=== PATIENT | female | born 1945 | race Caucasian/White ===

== ENCOUNTER 2018-04-16 16:45 | Outpatient (RCR) | payer MEDICARE, SELFPAY ==
--- NOTE | 2018-02-19 17:36 | PT.OIE ---
Current Diagnoses Stiffness of left wrist, not elsewhere classified (02/19/18) Cervicalgia (02/19/18) Dorsalgia, unspecified (02/19/18) Muscle weakness (generalized) (02/19/18) Other muscle spasm (02/19/18) Radial styloid tenosynovitis [de Quervain] (02/19/18) Provider Visit Care Team Role Provider Type Sol Collado PA-C Attending Provider Advanced Professor Of Political Science Primary Care Provider Specialty: Medical Address: [address] [place] [address], [facility] Email: [email or web address] Physical Therapy Initial Evaluation PT-OP-A Visit Information Start: 02/20/18 13:22 Freq: Status: Active Protocol: Document 02/19/18 17:36 [facility] (Rec: 02/20/18 13:39 [facility] [email or web address]) Out-Patient Physical Therapy Visit Information Visit Information Visit Type Initial Evaluation Visit Start Time 16:53 Visit Stop Time 17:36 Total Visit Minutes 43 Visit Number 1 Number of WOOD POLISHER Visits 0 Evaluation Information Evaluation Date 02/19/18 PT-OP-B Current Condition Start: 02/20/18 13:22 Freq: Status: Active Protocol: Document 02/19/18 17:36 [facility] (Rec: 02/20/18 13:39 [facility] [email or web address]) Current Condition History of Current Condition Onset Date November 2017 Current Complaints L sided neck, shoulder, wrist pain History of Current Condition Pt is a 72 y/o female presenting to physical therapy with a c/o L sided neck and shoulder pain ongoing for many years, as well as L wrist pain, onset November 2017 after seeding her lawn. Pt is L hand dominant. Pt notes that typically, she wakes up in the morning with numbness/ tingling in L hand digits 3 and 4, but goes away after she gets up out of bed. She sleeps on her R side with one pillow, L arm at her side. Pt does have a thumb and wrist spica brace, but states it is too small for her and she ends up taking it off in the middle of the night due to pain from the brace being too tight. No imaging has been performed. Pain in the wrist and thumb region typically are worse with grasping and activities using the hand (i.e . holding coffee cup, driving) . Treatment Goals Patient/Caregiver Goals to get back to her upper body exercise routine with her class, write a check, be able to garden Prior Functional Status Baseline Function- ADL's Independent Baseline Function- Recreation/Hobbies indep. gardening, exercising with UE work with a group of women her Personal Factors Other Personal Factors That May Effect h/o chronic neck pain Therapy/Recovery PT-OP-C Subjective Start: 02/20/18 13:22 Freq: Status: Active Protocol: Document 02/19/18 17:36 [facility] (Rec: 02/20/18 13:39 [facility] [email or web address]) OP-PT Subjective Patient Comments Patient Reported Progress Same Patient Questionnaires Quick Dash- Upper Extremity Quick Dash UE Score 52.27 Quick Dash UE Impairment 40 to 59% Impaired (Score 40- 59) OP-PT Pain Assessment Location Left Lower Lateral Wrist Intensity 5 Scale Used Numeric (1 - 10) PT-OP-F Manual Assessment Start: 02/20/18 13:22 Freq: Status: Active Protocol: Document 02/19/18 17:36 [facility] (Rec: 02/20/18 18:05 RCC [email or web address]) Manual Assessments Soft Tissue Assessment Soft Tissue Mobility Assessment Tenderness to palpation: L extensor pollicis brevis, abductor pollicis longus, wrist extensor common proximal attachement. L upper trapezius and levator scapulae . PT-OP-H Neuro Start: 02/20/18 13:22 Freq: Status: Active Protocol: Document 02/19/18 17:36 [facility] (Rec: 02/20/18 18:05 [facility] [email or web address]) Sensation Evaluation Comments Summary Comments WNL but pt reports occasional tingling digits 3 and 4 on the L hand. Deep Tendon Reflex & Clonus Assessment Deep Tendon Reflex Left Brachioradialis Deep Tendon Reflex 3+ Normal But Brisk Right Brachioradialis Deep Tendon Reflex 2+ Normal Bilateral Tricep Deep Tendon Reflex 2+ Normal Bilateral Bicep Deep Tendon Reflex 2+ Normal PT-OP-K Range of Motion Start: 02/20/18 13:22 Freq: Status: Active Protocol: Document 02/19/18 17:36 [facility] (Rec: 02/20/18 18:05 [facility] [email or web address]) Cervical Spine Range of Motion Cervical Spine Active Degrees Testing Position Sitting Flexion 50 Extension 55 Rotation Left 75 Rotation Right 75 Lateral Flexion Left 34 Lateral Flexion Right 38 ROM Limitations Pain Shoulder Goniometric Range of Motion Shoulder Measured in Degrees Right Active Shoulder ROM WFL Yes Left Active Shoulder ROM WFL Yes Elbow/Forearm Range of Motion Elbow/Forearm Measured in Degrees Right Active Elbow/Forearm ROM WFL Yes Left Active Elbow/Forearm ROM WFL Yes Wrist Goniometric Range of Motion Wrist Measured in Degrees Right Flexion Active (degrees) 80 Extension Active (degrees) 75 Left Wrist ROM WFL No Flexion Active (degrees) 24 Flexion Passive (degrees) 70 Extension Active (degrees) 70 PT-OP-L Special Tests Start: 02/20/18 13:22 Freq: Status: Active Protocol: Document 02/19/18 17:36 [facility] (Rec: 02/20/18 18:05 [facility] [email or web address]) Special Tests Cervical Spine Special Tests Upper Limb Tension Test Test Results positive B Comments ulnar, median, radial Vertebral Artery Test Results negative Spurling's Test Test Results negative B Foraminal Compression Test Results negative B Shoulder Special Tests Huggins Jourdan Impingement Test Results negative B Empty Can Test Results negative B Drop Arm Rotator Cuff Test Results negative B Lift-Off Rotator Cuff Test Results negative B Wrist/Hand Special Tests Kasia's Test Results positive L, negative R Lateral Epicondylitis Extended Test Results negative B Vascular Special Tests Adson Maneuver Test Results negative B PT-OP-M Strength Start: 02/20/18 13:22 Freq: Status: Active Protocol: Document 02/19/18 17:36 [facility] (Rec: 02/20/18 18:05 [facility] [email or web address]) Shoulder Strength Shoulder Manual Muscle Testing Left Flexion 5 Normal Abduction (C5) 5 Normal External Rotation 4+ Good+ Internal Rotation 5 Normal Right Flexion 5 Normal Abduction (C5) 5 Normal External Rotation 5 Normal Internal Rotation 5 Normal Elbow/Forearm Strength Elbow and Forearm Manual Muscle Testing Right Flexion (C6) 5 Normal Extension (C7) 5 Normal Pronation 5 Normal Supination 5 Normal Left Flexion (C6) 5 Normal Extension (C7) 4 Good Pronation 4 Good Supination 4 Good Wrist Strength Wrist Manual Muscle Testing Left Flexion (C7) 3+ Fair+ Extension (C6) 3 Fair Ulnar Deviation 3 Fair Radial Deviation 3 Fair Reason Not Measured Pain Right Flexion (C7) 5 Normal Extension (C6) 5 Normal Ulnar Deviation 5 Normal Radial Deviation 5 Normal Hand Hopper Feeder/Pinch Strength Hand Dominance Hand Dominance Left Hand Strength Right Comments elbow flexed 90 deg, arm @ side: 47 lbs elbow extended 52 lbs Left Comments elbow flexed 90 deg, arm @ side: 44 lbs elbow extended 53 lbs PT-OP-Q Treatments Start: 02/20/18 13:22 Freq: Status: Active Protocol: Document 02/19/18 17:36 [facility] (Rec: 02/20/18 18:05 [facility] [email or web address]) Therapeutic Exercises Sitting Exercises wrist flex/extension AROM Side left Reps/Minutes x10 Comments gravity lessened position- thumb up, neutral forearm finger splaying Side left Reps/Minutes x5 Comments palm down on lap levator and UT stretch Side left Reps/Minutes 1x30 sec each Comments sitting on hand PT-OP-T Assessment and Plan Start: 02/20/18 13:22 Freq: Status: Active Protocol: Document 02/19/18 17:36 [facility] (Rec: 02/20/18 18:05 [facility] [email or web address]) Physical Therapy Assessment Rehab Potential Rehabilitation Potential Good Evaluation Complexity Number of Personal Factors/Comorbidities 1-2 Number of Body Systems Impaired 4 or More Clinical Presentation at Evaluation Stable Impairments Impairments Activity Tolerance Functional Activities Pain ROM Soft Tissue Mobility Strength Goals pain L wrist Impairment pain in L wrist 5/10 Short Term Goal (STG) 3/10 or less rated pain in L wrist STG Duration 6 weeks Veterinary Medical Officer Goal (LTG) pain 1/10 or less in L wrist. LTG Duration 12 weeks Recreational activities Impairment unable to participate in recreational activities Short Term Goal (STG) Pt will return to modified upper body exercises without increased L wrist pain for 30 min. STG Duration 6 weeks Veterinary Medical Officer Goal (LTG) Pt will return to prior level of upper body exercises without increased L wrist pain , no modifications. LTG Duration 12 weeks QuickDASH Impairment QuickDASH score 52.27 Short Term Goal (STG) QuickDASH disability score to 40 or less to demonstrate improvements with upper body function and tasks. STG Duration 6 weeks Correction Goal (LTG) QuickDASH disability score to 30 or less to demonstrate improvements with upper body function and tasks. LTG Duration 12 weeks L wrist ROM Impairment L wrist AROM Short Term Goal (STG) L wrist flexion to 45 degrees AROM. STG Duration 6 weeks Veterinary Medical Officer Goal (LTG) L wrist flexion to 60 degrees AROM or greater. LTG Duration 12 weeks UE weakness Impairment LUE weakness Short Term Goal (STG) Manual muscle testing: elbow extension to 4+/5, wrist at least 4/5 with extension and flexion to improve functional color adviser strength and tolerance. STG Duration 6 weeks Correction Goal (LTG) Manual muscle testing: elbow extension to 5/5, wrist at least 4+/5 with extension and flexion to improve functional color adviser strength and tolerance. LTG Duration 12 weeks Assessment Summary Assessment Pt presents with L sided neck and shoulder pain, which appears to be chronic in nature being affected by posture and digits 3 and 4 likely tingling secondary to head on neck positioning as well as shoulder positioning during sleep. She has upper body neural tension bilaterally, but negative testing for thoracic outlet syndrome. Pt's L wrist and thumb pain presents with signs and symptoms of de Quervain's tenosynovitis. Her thumb/ wrist spica brace does appear to be poor fitting, as she has lines from the entire brace on her wrist upon taking it off, likely causing increased compression and leading to discomfort and poor compliance with brace. She would benefit from larger size at this point given that she is unable to comply with using due to pain the brace is causing. Pt is a good candidate for physical therapy to decrease pain, progress her L hand and wrist strength and ROM to return to her prior level of function and recreational activities. Physical Therapy Plan Frequency and Duration Frequency of Treatment 2x/Week Duration of Treatment 12 weeks Plan of Care Start Date 02/19/18 Plan of Care End Date 05/14/18 Therapeutic Interventions Therapeutic Interventions Aquatic Therapy Home Exercise Program Joint Mobilizations Manual Therapy Neuromuscular Re-education Orthotic/Prosthetic Management Patient/Caregiver Education Self-Care/Home Management Sensory Integration Soft Tissue Mobilization Taping Therapeutic Activities Therapeutic Exercises Modalities Cold Pack/Ice Massage Electric Stimulation Hot Packs Paraffin Bath Ultrasound Next Visit Focus/Plan Next Note Type Treatment Note Next Visit Plan ultrsound and ice for pain, STR for neck, progress L wrist ROM
--- NOTE | 2018-02-21 16:02 | PT.OTN ---
Current Diagnoses Cervicalgia (02/21/18) Dorsalgia, unspecified (02/21/18) Other muscle spasm (02/21/18) Radial styloid tenosynovitis [de Quervain] (02/21/18) Physical Therapy Treatment Note PT-OP-A Visit Information Start: 02/20/18 13:22 Freq: Status: Active Protocol: Document 02/21/18 16:02 [facility] (Rec: 02/21/18 16:22 [facility] [email or web address]) Out-Patient Physical Therapy Visit Information Visit Information Visit Type Treatment Note Visit Start Time 15:20 Visit Stop Time 16:02 Total Visit Minutes 42 Visit Number 2 Number of SAXOPHONE ASSEMBLER Visits 0 Evaluation Information Evaluation Date 02/19/18 PT-OP-B Current Condition Start: 02/20/18 13:22 Freq: Status: Active Protocol: Document 02/19/18 17:36 [facility] (Rec: 02/20/18 13:39 [facility] [email or web address]) Current Condition History of Current Condition Onset Date November 2017 Current Complaints L sided neck, shoulder, wrist pain History of Current Condition Pt is a 72 y/o female presenting to physical therapy with a c/o L sided neck and shoulder pain ongoing for many years, as well as L wrist pain, onset November 2017 after seeding her lawn. Pt is L hand dominant. Pt notes that typically, she wakes up in the morning with numbness/ tingling in L hand digits 3 and 4, but goes away after she gets up out of bed. She sleeps on her R side with one pillow, L arm at her side. Pt does have a thumb and wrist spica brace, but states it is too small for her and she ends up taking it off in the middle of the night due to pain from the brace being too tight. No imaging has been performed. Pain in the wrist and thumb region typically are worse with grasping and activities using the hand (i.e . holding coffee cup, driving) . Treatment Goals Patient/Caregiver Goals to get back to her upper body exercise routine with her class, write a check, be able to garden Prior Functional Status Baseline Function- ADL's Independent Baseline Function- Recreation/Hobbies indep. gardening, exercising with UE work with a group of women her Personal Factors Other Personal Factors That May Effect h/o chronic neck pain Therapy/Recovery PT-OP-C Subjective Start: 02/20/18 13:22 Freq: Status: Active Protocol: Document 02/21/18 16:02 [facility] (Rec: 02/21/18 16:22 [facility] [email or web address]) OP-PT Subjective Patient Comments Patient Comments Pt states that her hand was sore after evaluation. She has been driving a lot today, therefore she does have some increased hand/wrist pain on the L. PT-OP-F Manual Assessment Start: 02/20/18 13:22 Freq: Status: Active Protocol: Document 02/19/18 17:36 [facility] (Rec: 02/20/18 18:05 [facility] [email or web address]) Manual Assessments Soft Tissue Assessment Soft Tissue Mobility Assessment Tenderness to palpation: L extensor pollicis brevis, abductor pollicis longus, wrist extensor common proximal attachement. L upper trapezius and levator scapulae . PT-OP-H Neuro Start: 02/20/18 13:22 Freq: Status: Active Protocol: Document 02/19/18 17:36 [facility] (Rec: 02/20/18 18:05 [facility] [email or web address]) Sensation Evaluation Comments Summary Comments WNL but pt reports occasional tingling digits 3 and 4 on the L hand. Deep Tendon Reflex & Clonus Assessment Deep Tendon Reflex Left Brachioradialis Deep Tendon Reflex 3+ Normal But Brisk Right Brachioradialis Deep Tendon Reflex 2+ Normal Bilateral Tricep Deep Tendon Reflex 2+ Normal Bilateral Bicep Deep Tendon Reflex 2+ Normal PT-OP-K Range of Motion Start: 02/20/18 13:22 Freq: Status: Active Protocol: Document 02/19/18 17:36 [facility] (Rec: 02/20/18 18:05 [facility] [email or web address]) Cervical Spine Range of Motion Cervical Spine Active Degrees Testing Position Sitting Flexion 50 Extension 55 Rotation Left 75 Rotation Right 75 Lateral Flexion Left 34 Lateral Flexion Right 38 ROM Limitations Pain Shoulder Goniometric Range of Motion Shoulder Measured in Degrees Right Active Shoulder ROM WFL Yes Left Active Shoulder ROM WFL Yes Elbow/Forearm Range of Motion Elbow/Forearm Measured in Degrees Right Active Elbow/Forearm ROM WFL Yes Left Active Elbow/Forearm ROM WFL Yes Wrist Goniometric Range of Motion Wrist Measured in Degrees Right Flexion Active (degrees) 80 Extension Active (degrees) 75 Left Wrist ROM WFL No Flexion Active (degrees) 24 Flexion Passive (degrees) 70 Extension Active (degrees) 70 PT-OP-L Special Tests Start: 02/20/18 13:22 Freq: Status: Active Protocol: Document 02/19/18 17:36 [facility] (Rec: 02/20/18 18:05 [facility] [email or web address]) Special Tests Cervical Spine Special Tests Upper Limb Tension Test Test Results positive B Comments ulnar, median, radial Vertebral Artery Test Results negative Spurling's Test Test Results negative B Foraminal Compression Test Results negative B Shoulder Special Tests Huggins Jourdan Impingement Test Results negative B Empty Can Test Results negative B Drop Arm Rotator Cuff Test Results negative B Lift-Off Rotator Cuff Test Results negative B Wrist/Hand Special Tests Kasia's Test Results positive L, negative R Lateral Epicondylitis Extended Test Results negative B Vascular Special Tests Adson Maneuver Test Results negative B PT-OP-M Strength Start: 02/20/18 13:22 Freq: Status: Active Protocol: Document 02/19/18 17:36 [facility] (Rec: 02/20/18 18:05 [facility] [email or web address]) Shoulder Strength Shoulder Manual Muscle Testing Left Flexion 5 Normal Abduction (C5) 5 Normal External Rotation 4+ Good+ Internal Rotation 5 Normal Right Flexion 5 Normal Abduction (C5) 5 Normal External Rotation 5 Normal Internal Rotation 5 Normal Elbow/Forearm Strength Elbow and Forearm Manual Muscle Testing Right Flexion (C6) 5 Normal Extension (C7) 5 Normal Pronation 5 Normal Supination 5 Normal Left Flexion (C6) 5 Normal Extension (C7) 4 Good Pronation 4 Good Supination 4 Good Wrist Strength Wrist Manual Muscle Testing Left Flexion (C7) 3+ Fair+ Extension (C6) 3 Fair Ulnar Deviation 3 Fair Radial Deviation 3 Fair Reason Not Measured Pain Right Flexion (C7) 5 Normal Extension (C6) 5 Normal Ulnar Deviation 5 Normal Radial Deviation 5 Normal Hand Manager Lsw/Pinch Strength Hand Dominance Hand Dominance Left Hand Strength Right Comments elbow flexed 90 deg, arm @ side: 47 lbs elbow extended 52 lbs Left Comments elbow flexed 90 deg, arm @ side: 44 lbs elbow extended 53 lbs PT-OP-Q Treatments Start: 02/20/18 13:22 Freq: Status: Active Protocol: Document 02/21/18 16:02 [facility] (Rec: 02/21/18 16:22 [facility] [email or web address]) Therapeutic Exercises Sitting Exercises theraputty Sitting Exercise Name thumb abduction Side left Resistance yellow theraputty Reps/Minutes 5 reps wrist flex/extension AROM Side left Reps/Minutes x10 Comments gravity lessened position- thumb up, neutral forearm finger splaying Side left Reps/Minutes x5 Comments palm down on lap Manual Therapy Treatment Soft Tissue Mobilization APL, EPB Body Location left Mobilization Type Rolling Strumming Intensity/Depth Moderate Body Position Sitting Other Other Manual Treatments manual PROM- L wrist flexion, extension, thumb abduction and extension PT-OP-R Modalities Start: 02/20/18 13:22 Freq: Status: Active Protocol: Document 02/21/18 16:02 [facility] (Rec: 02/21/18 16:22 [facility] [email or web address]) Hot Pack/Cold Pack Treatment Ice Massage Location L thumb/wrist Patient Position Sitting Treatment Duration (minutes) 4 Patient Tolerance Good Ultrasound Therapy Treatment L thumb/wrist- APL, EPB Treatment Duration (minutes) 8 Patient Position Sitting Coupling Medium Ultrasound Gel Applicator Size (cm2) 2 Frequency Setting (mHz) 3 Mode Setting Pulsed Duty Cycle 50 Intensity Setting (w/cm2) 0.8 PT-OP-T Assessment and Plan Start: 02/20/18 13:22 Freq: Status: Active Protocol: Document 02/21/18 16:02 [facility] (Rec: 02/21/18 16:22 [facility] [email or web address]) Physical Therapy Assessment Assessment Summary Assessment Pt without c/o pain during passive ROM of the wrist and thumb, but does note tension throughout motions. She was able to tolerate light resistance with theraputty into thumb abduction today without c/o pain but her thumb does fatigue quickly. Physical Therapy Plan Frequency and Duration Frequency of Treatment 2x/Week Duration of Treatment 12 weeks Plan of Care Start Date 02/19/18 Plan of Care End Date 05/14/18 Next Visit Focus/Plan Next Note Type Treatment Note Next Visit Plan assess tolerance to treatment, progress with business account manager and ROM as tolerated; add wrist ext and flexion stretch if able. Kinesiotape if needed and modalities for pain.
--- NOTE | 2018-02-26 17:30 | PT.OTN ---
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 Pt is L hand dominant. Pt notes that typically, she wakes up in the morning with numbness/ tingling in L hand digits 3 and 4, but goes away after she gets up out of bed. She sleeps on her R side with one pillow, L arm at her side. Pt does have a thumb and wrist spica brace, but states it is too small for her and she ends up taking it off in the middle of the night due to pain from the brace being too tight. No imaging has been performed. Pain in the wrist and thumb region typically are worse with grasping and activities using the hand (i.e . holding coffee cup, driving) . Treatment Goals Patient/Caregiver Goals to get back to her upper body exercise routine with her class, write a check, be able to garden Prior Functional Status Baseline Function- ADL's Independent Baseline Function- Recreation/Hobbies indep. 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 PT-OP-F Manual Assessment Start: 02/20/18 13:22 Freq: Status: Active Protocol: Document 02/19/18 17:36 [facility] (Rec: 02/20/18 18:05 [facility] [email or web address]) Manual Assessments Soft Tissue Assessment Soft Tissue Mobility Assessment Tenderness to palpation: L extensor pollicis brevis, abductor pollicis longus, wrist extensor common proximal attachement. L upper trapezius and levator scapulae . PT-OP-H Neuro Start: 02/20/18 13:22 Freq: Status: Active Protocol: Document 02/19/18 17:36 [facility] (Rec: 02/20/18 18:05 [facility] [email or web address]) Sensation Evaluation Comments Summary Comments WNL but pt reports occasional tingling digits 3 and 4 on the L hand. Deep Tendon Reflex & Clonus Assessment Deep Tendon Reflex Left Brachioradialis Deep Tendon Reflex 3+ Normal But Brisk Right Brachioradialis Deep Tendon Reflex 2+ Normal Bilateral Tricep Deep Tendon Reflex 2+ Normal Bilateral Bicep Deep Tendon Reflex 2+ Normal PT-OP-K Range of Motion Start: 02/20/18 13:22 Freq: Status: Active Protocol: Document 02/19/18 17:36 [facility] (Rec: 02/20/18 18:05 [facility] [email or web address]) Cervical Spine Range of Motion Cervical Spine Active Degrees Testing Position Sitting Flexion 50 Extension 55 Rotation Left 75 Rotation Right 75 Lateral Flexion Left 34 Lateral Flexion Right 38 ROM Limitations Pain Shoulder Goniometric Range of Motion Shoulder Measured in Degrees Right Active Shoulder ROM WFL Yes Left Active Shoulder ROM WFL Yes Elbow/Forearm Range of Motion Elbow/Forearm Measured in Degrees Right Active Elbow/Forearm ROM WFL Yes Left Active Elbow/Forearm ROM WFL Yes Wrist Goniometric Range of Motion Wrist Measured in Degrees Right Flexion Active (degrees) 80 Extension Active (degrees) 75 Left Wrist ROM WFL No Flexion Active (degrees) 24 Flexion Passive (degrees) 70 Extension Active (degrees) 70 PT-OP-L Special Tests Start: 02/20/18 13:22 Freq: Status: Active Protocol: Document 02/19/18 17:36 [facility] (Rec: 02/20/18 18:05 [facility] [email or web address]) Special Tests Cervical Spine Special Tests Upper Limb Tension Test Test Results positive B Comments ulnar, median, radial Vertebral Artery Test Results negative Spurling's Test Test Results negative B Foraminal Compression Test Results negative B Shoulder Special Tests Huggins Jourdan Impingement Test Results negative B Empty Can Test Results negative B Drop Arm Rotator Cuff Test Results negative B Lift-Off Rotator Cuff Test Results negative B Wrist/Hand Special Tests Kasia's Test Results positive L, negative R Lateral Epicondylitis Extended Test Results negative B Vascular Special Tests Adson Maneuver Test Results negative B PT-OP-M Strength Start: 02/20/18 13:22 Freq: Status: Active Protocol: Document 02/19/18 17:36 [facility] (Rec: 02/20/18 18:05 [facility] [email or web address]) Shoulder Strength Shoulder Manual Muscle Testing Left Flexion 5 Normal Abduction (C5) 5 Normal External Rotation 4+ Good+ Internal Rotation 5 Normal Right Flexion 5 Normal Abduction (C5) 5 Normal External Rotation 5 Normal Internal Rotation 5 Normal Elbow/Forearm Strength Elbow and Forearm Manual Muscle Testing Right Flexion (C6) 5 Normal Extension (C7) 5 Normal Pronation 5 Normal Supination 5 Normal Left Flexion (C6) 5 Normal Extension (C7) 4 Good Pronation 4 Good Supination 4 Good Wrist Strength Wrist Manual Muscle Testing Left Flexion (C7) 3+ Fair+ Extension (C6) 3 Fair Ulnar Deviation 3 Fair Radial Deviation 3 Fair Reason Not Measured Pain Right Flexion (C7) 5 Normal Extension (C6) 5 Normal Ulnar Deviation 5 Normal Radial Deviation 5 Normal 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 Hand Dominance Hand Dominance Left Hand Strength Right Comments elbow flexed 90 deg, arm @ side: 47 lbs elbow extended 52 lbs Left Comments elbow flexed 90 deg, arm @ side: 44 lbs elbow extended 53 lbs PT-OP-Q Treatments Start: 02/20/18 13:22 Freq: Status: Active Protocol: Document 02/26/18 17:30 [facility] (Rec: 02/26/18 17:44 [facility] [email or web address]) Manual Therapy Treatment Soft Tissue Mobilization L upper trapezius, levator Mobilization Type Myofascial Release Rolling Strumming Intensity/Depth Moderate Body Position Supine APL, EPB Body Location left Mobilization Type Rolling Strumming Intensity/Depth Moderate Body Position Sitting Joint Mobilizations L Radiocarpal Direction PA, AP with traction Grade III Body Position Sitting Reps/Duration 5 min each Taping 1 Body Location L wrist Type of Tape Kinesio Tape Comments Y strip palmar wrist extending one part of Y strip over snuff box and other part of Y strip over volar forearm Manual Techniques L wrist and thumb ROM Type thumb abduction and extension, wrist flexion and extension, ulnar deviation Body Position Sitting Reps/Duration 10 each PT-OP-R Modalities Start: 02/20/18 13:22 Freq: Status: Active Protocol: Document 02/26/18 17:30 [facility] (Rec: 02/26/18 17:44 [facility] [email or web address]) Ultrasound Therapy Treatment L thumb/wrist- APL, EPB Treatment Duration (minutes) 8 Patient Position Sitting Coupling Medium Ultrasound Gel Applicator Size (cm2) 2 Frequency Setting (mHz) 3 Mode Setting Pulsed Duty Cycle 50 Intensity Setting (w/cm2) 0.8 PT-OP-T Assessment and Plan Start: 02/20/18 13:22 Freq: Status: Active Protocol: Document 02/26/18 17:30 [facility] (Rec: 02/26/18 17:44 [facility] [email or web address]) Physical Therapy Assessment Assessment Summary Assessment Pt with improved wrist flexion and extension today, and less pain with thumb motion in gravity lessened position. Pt with moderate tension in upper trapezius and levator today. Her difficulty with reaching for seatbelt likely contributed by neck/shoulder as well as function of hand and wrist. 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
--- NOTE | 2018-02-28 15:58 | PT.OTN ---
Current Diagnoses Cervicalgia (02/28/18) Dorsalgia, unspecified (02/28/18) Other muscle spasm (02/28/18) Radial styloid tenosynovitis [de Quervain] (02/28/18) Physical Therapy Treatment Note PT-OP-A Visit Information Start: 02/20/18 13:22 Freq: Status: Active Protocol: Document 02/28/18 15:58 [facility] (Rec: 03/01/18 14:52 [facility] [email or web address]) Out-Patient Physical Therapy Visit Information Visit Information Visit Type Treatment Note Visit Start Time 15:17 Visit Stop Time 15:58 Total Visit Minutes 41 Visit Number 4 Number of DECKHAND MAINTENANCE Visits 0 Evaluation Information Evaluation Date 02/19/18 PT-OP-B Current Condition Start: 02/20/18 13:22 Freq: Status: Active Protocol: Document 02/19/18 17:36 [facility] (Rec: 02/20/18 13:39 [facility] [email or web address]) Current Condition History of Current Condition Onset Date November 2017 Current Complaints L sided neck, shoulder, wrist pain History of Current Condition Pt is a 72 y/o female presenting to physical therapy with a c/o L sided neck and shoulder pain ongoing for many years, as well as L wrist pain, onset November 2017 after seeding her lawn. Pt is L hand dominant. Pt notes that typically, she wakes up in the morning with numbness/ tingling in L hand digits 3 and 4, but goes away after she gets up out of bed. She sleeps on her R side with one pillow, L arm at her side. Pt does have a thumb and wrist spica brace, but states it is too small for her and she ends up taking it off in the middle of the night due to pain from the brace being too tight. No imaging has been performed. Pain in the wrist and thumb region typically are worse with grasping and activities using the hand (i.e . holding coffee cup, driving) . Treatment Goals Patient/Caregiver Goals to get back to her upper body exercise routine with her class, write a check, be able to garden Prior Functional Status Baseline Function- ADL's Independent Baseline Function- Recreation/Hobbies indep. gardening, exercising with UE work with a group of women her Personal Factors Other Personal Factors That May Effect h/o chronic neck pain Therapy/Recovery PT-OP-C Subjective Start: 02/20/18 13:22 Freq: Status: Active Protocol: Document 02/28/18 15:58 [facility] (Rec: 03/01/18 14:52 [facility] [email or web address]) OP-PT Subjective Patient Comments Patient Comments Pt states the Kinesiotape helped a lot but did have increased discomfort after taking the tape off earlier today. She is performing her HEP. PT-OP-F Manual Assessment Start: 02/20/18 13:22 Freq: Status: Active Protocol: Document 02/19/18 17:36 [facility] (Rec: 02/20/18 18:05 [facility] [email or web address]) Manual Assessments Soft Tissue Assessment Soft Tissue Mobility Assessment Tenderness to palpation: L extensor pollicis brevis, abductor pollicis longus, wrist extensor common proximal attachement. L upper trapezius and levator scapulae . PT-OP-H Neuro Start: 02/20/18 13:22 Freq: Status: Active Protocol: Document 02/19/18 17:36 [facility] (Rec: 02/20/18 18:05 [facility] [email or web address]) Sensation Evaluation Comments Summary Comments WNL but pt reports occasional tingling digits 3 and 4 on the L hand. Deep Tendon Reflex & Clonus Assessment Deep Tendon Reflex Left Brachioradialis Deep Tendon Reflex 3+ Normal But Brisk Right Brachioradialis Deep Tendon Reflex 2+ Normal Bilateral Tricep Deep Tendon Reflex 2+ Normal Bilateral Bicep Deep Tendon Reflex 2+ Normal PT-OP-K Range of Motion Start: 02/20/18 13:22 Freq: Status: Active Protocol: Document 02/19/18 17:36 [facility] (Rec: 02/20/18 18:05 [facility] [email or web address]) Cervical Spine Range of Motion Cervical Spine Active Degrees Testing Position Sitting Flexion 50 Extension 55 Rotation Left 75 Rotation Right 75 Lateral Flexion Left 34 Lateral Flexion Right 38 ROM Limitations Pain Shoulder Goniometric Range of Motion Shoulder Measured in Degrees Right Active Shoulder ROM WFL Yes Left Active Shoulder ROM WFL Yes Elbow/Forearm Range of Motion Elbow/Forearm Measured in Degrees Right Active Elbow/Forearm ROM WFL Yes Left Active Elbow/Forearm ROM WFL Yes Wrist Goniometric Range of Motion Wrist Measured in Degrees Right Flexion Active (degrees) 80 Extension Active (degrees) 75 Left Wrist ROM WFL No Flexion Active (degrees) 24 Flexion Passive (degrees) 70 Extension Active (degrees) 70 PT-OP-L Special Tests Start: 02/20/18 13:22 Freq: Status: Active Protocol: Document 02/19/18 17:36 [facility] (Rec: 02/20/18 18:05 [facility] [email or web address]) Special Tests Cervical Spine Special Tests Upper Limb Tension Test Test Results positive B Comments ulnar, median, radial Vertebral Artery Test Results negative Spurling's Test Test Results negative B Foraminal Compression Test Results negative B Shoulder Special Tests Huggins Jourdan Impingement Test Results negative B Empty Can Test Results negative B Drop Arm Rotator Cuff Test Results negative B Lift-Off Rotator Cuff Test Results negative B Wrist/Hand Special Tests Kasia's Test Results positive L, negative R Lateral Epicondylitis Extended Test Results negative B Vascular Special Tests Adson Maneuver Test Results negative B PT-OP-M Strength Start: 02/20/18 13:22 Freq: Status: Active Protocol: Document 02/19/18 17:36 [facility] (Rec: 02/20/18 18:05 [facility] [email or web address]) Shoulder Strength Shoulder Manual Muscle Testing Left Flexion 5 Normal Abduction (C5) 5 Normal External Rotation 4+ Good+ Internal Rotation 5 Normal Right Flexion 5 Normal Abduction (C5) 5 Normal External Rotation 5 Normal Internal Rotation 5 Normal Elbow/Forearm Strength Elbow and Forearm Manual Muscle Testing Right Flexion (C6) 5 Normal Extension (C7) 5 Normal Pronation 5 Normal Supination 5 Normal Left Flexion (C6) 5 Normal Extension (C7) 4 Good Pronation 4 Good Supination 4 Good Wrist Strength Wrist Manual Muscle Testing Left Flexion (C7) 3+ Fair+ Extension (C6) 3 Fair Ulnar Deviation 3 Fair Radial Deviation 3 Fair Reason Not Measured Pain Right Flexion (C7) 5 Normal Extension (C6) 5 Normal Ulnar Deviation 5 Normal Radial Deviation 5 Normal 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 Dominance Hand Dominance Left Hand Strength Right Comments elbow flexed 90 deg, arm @ side: 47 lbs elbow extended 52 lbs Left Comments elbow flexed 90 deg, arm @ side: 44 lbs elbow extended 53 lbs PT-OP-Q Treatments Start: 02/20/18 13:22 Freq: Status: Active Protocol: Document 02/28/18 15:58 [facility] (Rec: 03/01/18 14:52 [facility] [email or web address]) Manual Therapy Treatment Soft Tissue Mobilization L upper trapezius, levator Mobilization Type Myofascial Release Rolling Strumming Intensity/Depth Moderate Body Position Supine APL, EPB Body Location left Mobilization Type Rolling Strumming Intensity/Depth Moderate Body Position Sitting Joint Mobilizations L Radiocarpal Direction PA, AP with traction Grade III Body Position Sitting Reps/Duration 5 min each Taping 1 Body Location L wrist Type of Tape Kinesio Tape Comments Y strip palmar wrist extending one part of Y strip over snuff box and other part of Y strip over volar forearm Manual Techniques L wrist and thumb ROM Type thumb abduction and extension, wrist flexion and extension, ulnar deviation Body Position Sitting Reps/Duration 10 each PT-OP-R Modalities Start: 02/20/18 13:22 Freq: Status: Active Protocol: Document 02/28/18 15:58 [facility] (Rec: 03/01/18 14:52 [facility] [email or web address]) Ultrasound Therapy Treatment L thumb/wrist- APL, EPB Treatment Duration (minutes) 8 Patient Position Sitting Coupling Medium Ultrasound Gel Applicator Size (cm2) 2 Frequency Setting (mHz) 3 Mode Setting Pulsed Duty Cycle 50 Intensity Setting (w/cm2) 0.8 PT-OP-T Assessment and Plan Start: 02/20/18 13:22 Freq: Status: Active Protocol: Document 02/28/18 15:58 [facility] (Rec: 03/01/18 14:52 [facility] [email or web address]) Physical Therapy Assessment Assessment Summary Assessment Pt's passive and active wrist ROM is improving slowly, with less discomfort further into range. Encouraged pt to continue to use L hand as much as possible with light functional activities while wearing kinesiotape to foster improved strength and function . Pt still not at her baseline function and limited with ROM and pain. 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
--- NOTE | 2018-03-05 17:30 | PT.OTN ---
Current Diagnoses Cervicalgia (03/05/18) Dorsalgia, unspecified (03/05/18) Other muscle spasm (03/05/18) Radial styloid tenosynovitis [de Quervain] (03/05/18) Physical Therapy Treatment Note PT-OP-A Visit Information Start: 02/20/18 13:22 Freq: Status: Active Protocol: Document 03/05/18 17:30 [facility] (Rec: 03/05/18 17:47 [facility] [email or web address]) Out-Patient Physical Therapy Visit Information Visit Information Visit Type Treatment Note Visit Start Time 16:50 Visit Stop Time 17:30 Total Visit Minutes 40 Visit Number 5 Number of OCCUPATIONAL THER[employer]Y CO DIRECTOR Visits 0 Evaluation Information Evaluation Date 02/19/18 PT-OP-B Current Condition Start: 02/20/18 13:22 Freq: Status: Active Protocol: Document 02/19/18 17:36 [facility] (Rec: 02/20/18 13:39 [facility] [email or web address]) Current Condition History of Current Condition Onset Date November 2017 Current Complaints L sided neck, shoulder, wrist pain History of Current Condition Pt is a 72 y/o female presenting to physical therapy with a c/o L sided neck and shoulder pain ongoing for many years, as well as L wrist pain, onset November 2017 after seeding her lawn. Pt is L hand dominant. Pt notes that typically, she wakes up in the morning with numbness/ tingling in L hand digits 3 and 4, but goes away after she gets up out of bed. She sleeps on her R side with one pillow, L arm at her side. Pt does have a thumb and wrist spica brace, but states it is too small for her and she ends up taking it off in the middle of the night due to pain from the brace being too tight. No imaging has been performed. Pain in the wrist and thumb region typically are worse with grasping and activities using the hand (i.e . holding coffee cup, driving) . Treatment Goals Patient/Caregiver Goals to get back to her upper body exercise routine with her class, write a check, be able to garden Prior Functional Status Baseline Function- ADL's Independent Baseline Function- Recreation/Hobbies indep. gardening, exercising with UE work with a group of women her Personal Factors Other Personal Factors That May Effect h/o chronic neck pain Therapy/Recovery PT-OP-C Subjective Start: 02/20/18 13:22 Freq: Status: Active Protocol: Document 03/05/18 17:30 [facility] (Rec: 03/05/18 17:47 [facility] [email or web address]) OP-PT Subjective Patient Comments Patient Comments Pt is performing HEP. She has been able to modify her exercise with her workout group to use ankle weights around the wrist vs. holding dumbells which she could not tolerate. PT-OP-F Manual Assessment Start: 02/20/18 13:22 Freq: Status: Active Protocol: Document 02/19/18 17:36 [facility] (Rec: 02/20/18 18:05 [facility] [email or web address]) Manual Assessments Soft Tissue Assessment Soft Tissue Mobility Assessment Tenderness to palpation: L extensor pollicis brevis, abductor pollicis longus, wrist extensor common proximal attachement. L upper trapezius and levator scapulae . PT-OP-H Neuro Start: 02/20/18 13:22 Freq: Status: Active Protocol: Document 02/19/18 17:36 [facility] (Rec: 02/20/18 18:05 [facility] [email or web address]) Sensation Evaluation Comments Summary Comments WNL but pt reports occasional tingling digits 3 and 4 on the L hand. Deep Tendon Reflex & Clonus Assessment Deep Tendon Reflex Left Brachioradialis Deep Tendon Reflex 3+ Normal But Brisk Right Brachioradialis Deep Tendon Reflex 2+ Normal Bilateral Tricep Deep Tendon Reflex 2+ Normal Bilateral Bicep Deep Tendon Reflex 2+ Normal PT-OP-K Range of Motion Start: 02/20/18 13:22 Freq: Status: Active Protocol: Document 02/19/18 17:36 [facility] (Rec: 02/20/18 18:05 [facility] [email or web address]) Cervical Spine Range of Motion Cervical Spine Active Degrees Testing Position Sitting Flexion 50 Extension 55 Rotation Left 75 Rotation Right 75 Lateral Flexion Left 34 Lateral Flexion Right 38 ROM Limitations Pain Shoulder Goniometric Range of Motion Shoulder Measured in Degrees Right Active Shoulder ROM WFL Yes Left Active Shoulder ROM WFL Yes Elbow/Forearm Range of Motion Elbow/Forearm Measured in Degrees Right Active Elbow/Forearm ROM WFL Yes Left Active Elbow/Forearm ROM WFL Yes Wrist Goniometric Range of Motion Wrist Measured in Degrees Right Flexion Active (degrees) 80 Extension Active (degrees) 75 Left Wrist ROM WFL No Flexion Active (degrees) 24 Flexion Passive (degrees) 70 Extension Active (degrees) 70 PT-OP-L Special Tests Start: 02/20/18 13:22 Freq: Status: Active Protocol: Document 02/19/18 17:36 [facility] (Rec: 02/20/18 18:05 [facility] [email or web address]) Special Tests Cervical Spine Special Tests Upper Limb Tension Test Test Results positive B Comments ulnar, median, radial Vertebral Artery Test Results negative Spurling's Test Test Results negative B Foraminal Compression Test Results negative B Shoulder Special Tests Huggins Jourdan Impingement Test Results negative B Empty Can Test Results negative B Drop Arm Rotator Cuff Test Results negative B Lift-Off Rotator Cuff Test Results negative B Wrist/Hand Special Tests Kasia's Test Results positive L, negative R Lateral Epicondylitis Extended Test Results negative B Vascular Special Tests Adson Maneuver Test Results negative B PT-OP-M Strength Start: 02/20/18 13:22 Freq: Status: Active Protocol: Document 02/19/18 17:36 [facility] (Rec: 02/20/18 18:05 [facility] [email or web address]) Shoulder Strength Shoulder Manual Muscle Testing Left Flexion 5 Normal Abduction (C5) 5 Normal External Rotation 4+ Good+ Internal Rotation 5 Normal Right Flexion 5 Normal Abduction (C5) 5 Normal External Rotation 5 Normal Internal Rotation 5 Normal Elbow/Forearm Strength Elbow and Forearm Manual Muscle Testing Right Flexion (C6) 5 Normal Extension (C7) 5 Normal Pronation 5 Normal Supination 5 Normal Left Flexion (C6) 5 Normal Extension (C7) 4 Good Pronation 4 Good Supination 4 Good Wrist Strength Wrist Manual Muscle Testing Left Flexion (C7) 3+ Fair+ Extension (C6) 3 Fair Ulnar Deviation 3 Fair Radial Deviation 3 Fair Reason Not Measured Pain Right Flexion (C7) 5 Normal Extension (C6) 5 Normal Ulnar Deviation 5 Normal Radial Deviation 5 Normal Hand Distribution Technician/Pinch Strength Hand Dominance Hand Dominance Left Hand Strength Right Comments elbow flexed 90 deg, arm @ side: 47 lbs elbow extended 52 lbs Left Comments elbow flexed 90 deg, arm @ side: 44 lbs elbow extended 53 lbs PT-OP-Q Treatments Start: 02/20/18 13:22 Freq: Status: Active Protocol: Document 03/05/18 17:30 [facility] (Rec: 03/05/18 17:47 [facility] [email or web address]) Therapeutic Exercises Sitting Exercises wrist extension stretch Side left Reps/Minutes 3x15 sec Comments thumb in palm position supination/pronation Sitting Exercise Name T-flexbar supination/pronation Side bilateral Resistance red flexbar Reps/Minutes x10 wrist flex/extension AROM Side left Reps/Minutes x10 Comments vs gravity- limited range but less pain Manual Therapy Treatment Soft Tissue Mobilization L upper trapezius, levator Mobilization Type Myofascial Release Rolling Strumming Intensity/Depth Moderate Body Position Supine APL, EPB Body Location left Mobilization Type Rolling Strumming Intensity/Depth Moderate Body Position Sitting Taping 1 Body Location L wrist Type of Tape Kinesio Tape Comments Y strip palmar wrist extending one part of Y strip over snuff box and other part of Y strip over volar forearm Manual Techniques L wrist and thumb ROM Type thumb abduction and extension, wrist flexion and extension, ulnar deviation Body Position Sitting Reps/Duration 10 each PT-OP-R Modalities Start: 02/20/18 13:22 Freq: Status: Active Protocol: Document 03/05/18 17:30 [facility] (Rec: 03/05/18 17:47 [facility] [email or web address]) Ultrasound Therapy Treatment L thumb/wrist- APL, EPB Treatment Duration (minutes) 8 Patient Position Sitting Coupling Medium Ultrasound Gel Applicator Size (cm2) 2 Frequency Setting (mHz) 3 Mode Setting Pulsed Duty Cycle 50 Intensity Setting (w/cm2) 0.8 PT-OP-T Assessment and Plan Start: 02/20/18 13:22 Freq: Status: Active Protocol: Document 03/05/18 17:30 [facility] (Rec: 03/05/18 17:47 [facility] [email or web address]) Physical Therapy Assessment Assessment Summary Assessment Pt tolerated L wrist ROM vs. gravity without pain but still has stiffness in the wrist joint. Pt still requires modification of activities at home and during stretching due to pain in the APL and EPB. Physical Therapy Plan Frequency and Duration Frequency of Treatment 2x/Week Duration of Treatment 12 weeks Plan of Care Start Date 02/19/18 Plan of Care End Date 05/14/18 Next Visit Focus/Plan Next Note Type Treatment Note Next Visit Plan nerve glides if able to tolerate
--- NOTE | 2018-03-07 16:00 | PT.OTN ---
Current Diagnoses Cervicalgia (03/07/18) Dorsalgia, unspecified (03/07/18) Other muscle spasm (03/07/18) Radial styloid tenosynovitis [de Quervain] (03/07/18) Physical Therapy Treatment Note PT-OP-A Visit Information Start: 02/20/18 13:22 Freq: Status: Active Protocol: Document 03/07/18 16:00 [facility] (Rec: 03/08/18 13:22 [facility] [email or web address]) Out-Patient Physical Therapy Visit Information Visit Information Visit Type Treatment Note Visit Start Time 15:18 Visit Stop Time 16:00 Total Visit Minutes 42 Visit Number 6 Number of [employer] ANALYST Visits 0 Evaluation Information Evaluation Date 02/19/18 PT-OP-B Current Condition Start: 02/20/18 13:22 Freq: Status: Active Protocol: Document 02/19/18 17:36 [facility] (Rec: 02/20/18 13:39 [facility] [email or web address]) Current Condition History of Current Condition Onset Date November 2017 Current Complaints L sided neck, shoulder, wrist pain History of Current Condition Pt is a 72 y/o female presenting to physical therapy with a c/o L sided neck and shoulder pain ongoing for many years, as well as L wrist pain, onset November 2017 after seeding her lawn. Pt is L hand dominant. Pt notes that typically, she wakes up in the morning with numbness/ tingling in L hand digits 3 and 4, but goes away after she gets up out of bed. She sleeps on her R side with one pillow, L arm at her side. Pt does have a thumb and wrist spica brace, but states it is too small for her and she ends up taking it off in the middle of the night due to pain from the brace being too tight. No imaging has been performed. Pain in the wrist and thumb region typically are worse with grasping and activities using the hand (i.e . holding coffee cup, driving) . Treatment Goals Patient/Caregiver Goals to get back to her upper body exercise routine with her class, write a check, be able to garden Prior Functional Status Baseline Function- ADL's Independent Baseline Function- Recreation/Hobbies indep. gardening, exercising with UE work with a group of women her Personal Factors Other Personal Factors That May Effect h/o chronic neck pain Therapy/Recovery PT-OP-C Subjective Start: 02/20/18 13:22 Freq: Status: Active Protocol: Document 03/07/18 16:00 [facility] (Rec: 03/08/18 13:22 [facility] [email or web address]) OP-PT Subjective Patient Comments Patient Comments Pt states the tape seems to help during activities, and less pain when waking up in the morning. PT-OP-F Manual Assessment Start: 02/20/18 13:22 Freq: Status: Active Protocol: Document 02/19/18 17:36 [facility] (Rec: 02/20/18 18:05 [facility] [email or web address]) Manual Assessments Soft Tissue Assessment Soft Tissue Mobility Assessment Tenderness to palpation: L extensor pollicis brevis, abductor pollicis longus, wrist extensor common proximal attachement. L upper trapezius and levator scapulae . PT-OP-H Neuro Start: 02/20/18 13:22 Freq: Status: Active Protocol: Document 02/19/18 17:36 [facility] (Rec: 02/20/18 18:05 [facility] [email or web address]) Sensation Evaluation Comments Summary Comments WNL but pt reports occasional tingling digits 3 and 4 on the L hand. Deep Tendon Reflex & Clonus Assessment Deep Tendon Reflex Left Brachioradialis Deep Tendon Reflex 3+ Normal But Brisk Right Brachioradialis Deep Tendon Reflex 2+ Normal Bilateral Tricep Deep Tendon Reflex 2+ Normal Bilateral Bicep Deep Tendon Reflex 2+ Normal PT-OP-K Range of Motion Start: 02/20/18 13:22 Freq: Status: Active Protocol: Document 03/07/18 16:00 [facility] (Rec: 03/08/18 13:22 [facility] [email or web address]) Wrist Goniometric Range of Motion Wrist Measured in Degrees Left Wrist ROM WFL No Flexion Active (degrees) 30 Flexion Passive (degrees) 70 Extension Active (degrees) 70 PT-OP-L Special Tests Start: 02/20/18 13:22 Freq: Status: Active Protocol: Document 02/19/18 17:36 [facility] (Rec: 02/20/18 18:05 [facility] [email or web address]) Special Tests Cervical Spine Special Tests Upper Limb Tension Test Test Results positive B Comments ulnar, median, radial Vertebral Artery Test Results negative Spurling's Test Test Results negative B Foraminal Compression Test Results negative B Shoulder Special Tests Huggins Jourdan Impingement Test Results negative B Empty Can Test Results negative B Drop Arm Rotator Cuff Test Results negative B Lift-Off Rotator Cuff Test Results negative B Wrist/Hand Special Tests Kasia's Test Results positive L, negative R Lateral Epicondylitis Extended Test Results negative B Vascular Special Tests Adson Maneuver Test Results negative B PT-OP-M Strength Start: 02/20/18 13:22 Freq: Status: Active Protocol: Document 02/19/18 17:36 [facility] (Rec: 02/20/18 18:05 [facility] [email or web address]) Shoulder Strength Shoulder Manual Muscle Testing Left Flexion 5 Normal Abduction (C5) 5 Normal External Rotation 4+ Good+ Internal Rotation 5 Normal Right Flexion 5 Normal Abduction (C5) 5 Normal External Rotation 5 Normal Internal Rotation 5 Normal Elbow/Forearm Strength Elbow and Forearm Manual Muscle Testing Right Flexion (C6) 5 Normal Extension (C7) 5 Normal Pronation 5 Normal Supination 5 Normal Left Flexion (C6) 5 Normal Extension (C7) 4 Good Pronation 4 Good Supination 4 Good Wrist Strength Wrist Manual Muscle Testing Left Flexion (C7) 3+ Fair+ Extension (C6) 3 Fair Ulnar Deviation 3 Fair Radial Deviation 3 Fair Reason Not Measured Pain Right Flexion (C7) 5 Normal Extension (C6) 5 Normal Ulnar Deviation 5 Normal Radial Deviation 5 Normal Hand Law Office Receptionist/Pinch Strength Hand Dominance Hand Dominance Left Hand Strength Right Comments elbow flexed 90 deg, arm @ side: 47 lbs elbow extended 52 lbs Left Comments elbow flexed 90 deg, arm @ side: 44 lbs elbow extended 53 lbs PT-OP-Q Treatments Start: 02/20/18 13:22 Freq: Status: Active Protocol: Document 03/07/18 16:00 [facility] (Rec: 03/08/18 13:22 [facility] [email or web address]) Therapeutic Exercises Sitting Exercises wrist extension stretch Side left Reps/Minutes 3x15 sec Comments thumb in palm position wrist flex/extension AROM Side left Reps/Minutes x10 Comments vs gravity- limited range but less pain Manual Therapy Treatment Soft Tissue Mobilization L upper trapezius, levator Mobilization Type Myofascial Release Strumming Sustained Pressure Trigger Point Release Intensity/Depth Moderate Body Position Supine APL, EPB Body Location left Mobilization Type Rolling Strumming Intensity/Depth Moderate Body Position Sitting Joint Mobilizations L Radiocarpal Direction PA, AP with traction Grade III Body Position Sitting Reps/Duration 5 min each Manual Techniques L wrist and thumb ROM Type thumb abduction and extension, wrist flexion and extension, ulnar deviation Body Position Sitting Reps/Duration 10 each PT-OP-R Modalities Start: 02/20/18 13:22 Freq: Status: Active Protocol: Document 03/07/18 16:00 [facility] (Rec: 03/08/18 13:22 [facility] [email or web address]) Ultrasound Therapy Treatment L thumb/wrist- APL, EPB Treatment Duration (minutes) 8 Patient Position Sitting Coupling Medium Ultrasound Gel Applicator Size (cm2) 2 Frequency Setting (mHz) 3 Mode Setting Pulsed Duty Cycle 50 Intensity Setting (w/cm2) 0.8 PT-OP-T Assessment and Plan Start: 02/20/18 13:22 Freq: Status: Active Protocol: Document 03/07/18 16:00 [facility] (Rec: 03/08/18 13:22 [facility] [email or web address]) Physical Therapy Assessment Assessment Summary Assessment L wrist flexion still limited but improved slightly and no c /o pain. Pt with stiffness in the radiocarpal joint, ROM improves with gentle traction. Pt is still below her overall functional baseline with L dominant hand/wrist. Physical Therapy Plan Frequency and Duration Frequency of Treatment 2x/Week Duration of Treatment 12 weeks Plan of Care Start Date 02/19/18 Plan of Care End Date 05/14/18 Next Visit Focus/Plan Next Note Type Treatment Note Next Visit Plan nerve glides if able to tolerate, wrist isometrics.
--- NOTE | 2018-03-12 17:33 | PT.OTN ---
Current Diagnoses Cervicalgia (03/12/18) Dorsalgia, unspecified (03/12/18) Other muscle spasm (03/12/18) Radial styloid tenosynovitis [de Quervain] (03/12/18) Physical Therapy Treatment Note PT-OP-A Visit Information Start: 02/20/18 13:22 Freq: Status: Active Protocol: Document 03/12/18 17:33 [facility] (Rec: 03/13/18 09:40 [facility] [email or web address]) Out-Patient Physical Therapy Visit Information Visit Information Visit Type Treatment Note Visit Start Time 16:46 Visit Stop Time 17:33 Total Visit Minutes 47 Visit Number 7 Number of HEEL GUMMER Visits 0 Evaluation Information Evaluation Date 02/19/18 PT-OP-B Current Condition Start: 02/20/18 13:22 Freq: Status: Active Protocol: Document 02/19/18 17:36 [facility] (Rec: 02/20/18 13:39 [facility] [email or web address]) Current Condition History of Current Condition Onset Date November 2017 Current Complaints L sided neck, shoulder, wrist pain History of Current Condition Pt is a 72 y/o female presenting to physical therapy with a c/o L sided neck and shoulder pain ongoing for many years, as well as L wrist pain, onset November 2017 after seeding her lawn. Pt is L hand dominant. Pt notes that typically, she wakes up in the morning with numbness/ tingling in L hand digits 3 and 4, but goes away after she gets up out of bed. She sleeps on her R side with one pillow, L arm at her side. Pt does have a thumb and wrist spica brace, but states it is too small for her and she ends up taking it off in the middle of the night due to pain from the brace being too tight. No imaging has been performed. Pain in the wrist and thumb region typically are worse with grasping and activities using the hand (i.e . holding coffee cup, driving) . Treatment Goals Patient/Caregiver Goals to get back to her upper body exercise routine with her class, write a check, be able to garden Prior Functional Status Baseline Function- ADL's Independent Baseline Function- Recreation/Hobbies indep. 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 PT-OP-F Manual Assessment Start: 02/20/18 13:22 Freq: Status: Active Protocol: Document 02/19/18 17:36 [facility] (Rec: 02/20/18 18:05 [facility] [email or web address]) Manual Assessments Soft Tissue Assessment Soft Tissue Mobility Assessment Tenderness to palpation: L extensor pollicis brevis, abductor pollicis longus, wrist extensor common proximal attachement. L upper trapezius and levator scapulae . PT-OP-H Neuro Start: 02/20/18 13:22 Freq: Status: Active Protocol: Document 02/19/18 17:36 [facility] (Rec: 02/20/18 18:05 [facility] [email or web address]) Sensation Evaluation Comments Summary Comments WNL but pt reports occasional tingling digits 3 and 4 on the L hand. Deep Tendon Reflex & Clonus Assessment Deep Tendon Reflex Left Brachioradialis Deep Tendon Reflex 3+ Normal But Brisk Right Brachioradialis Deep Tendon Reflex 2+ Normal Bilateral Tricep Deep Tendon Reflex 2+ Normal Bilateral Bicep Deep Tendon Reflex 2+ Normal PT-OP-K Range of Motion Start: 02/20/18 13:22 Freq: Status: Active Protocol: Document 03/07/18 16:00 [facility] (Rec: 03/08/18 13:22 [facility] [email or web address]) Wrist Goniometric Range of Motion Wrist Measured in Degrees Left Wrist ROM WFL No Flexion Active (degrees) 30 Flexion Passive (degrees) 70 Extension Active (degrees) 70 PT-OP-L Special Tests Start: 02/20/18 13:22 Freq: Status: Active Protocol: Document 02/19/18 17:36 [facility] (Rec: 02/20/18 18:05 [facility] [email or web address]) Special Tests Cervical Spine Special Tests Upper Limb Tension Test Test Results positive B Comments ulnar, median, radial Vertebral Artery Test Results negative Spurling's Test Test Results negative B Foraminal Compression Test Results negative B Shoulder Special Tests Huggins Jourdan Impingement Test Results negative B Empty Can Test Results negative B Drop Arm Rotator Cuff Test Results negative B Lift-Off Rotator Cuff Test Results negative B Wrist/Hand Special Tests Kasia's Test Results positive L, negative R Lateral Epicondylitis Extended Test Results negative B Vascular Special Tests Adson Maneuver Test Results negative B PT-OP-M Strength Start: 02/20/18 13:22 Freq: Status: Active Protocol: Document 02/19/18 17:36 [facility] (Rec: 02/20/18 18:05 [facility] [email or web address]) Shoulder Strength Shoulder Manual Muscle Testing Left Flexion 5 Normal Abduction (C5) 5 Normal External Rotation 4+ Good+ Internal Rotation 5 Normal Right Flexion 5 Normal Abduction (C5) 5 Normal External Rotation 5 Normal Internal Rotation 5 Normal Elbow/Forearm Strength Elbow and Forearm Manual Muscle Testing Right Flexion (C6) 5 Normal Extension (C7) 5 Normal Pronation 5 Normal Supination 5 Normal Left Flexion (C6) 5 Normal Extension (C7) 4 Good Pronation 4 Good Supination 4 Good Wrist Strength Wrist Manual Muscle Testing Left Flexion (C7) 3+ Fair+ Extension (C6) 3 Fair Ulnar Deviation 3 Fair Radial Deviation 3 Fair Reason Not Measured Pain Right Flexion (C7) 5 Normal Extension (C6) 5 Normal Ulnar Deviation 5 Normal Radial Deviation 5 Normal Hand Funeral Attendant/Pinch Strength Hand Dominance Hand Dominance Left Hand Strength Right Comments elbow flexed 90 deg, arm @ side: 47 lbs elbow extended 52 lbs Left Comments elbow flexed 90 deg, arm @ side: 44 lbs elbow extended 53 lbs PT-OP-Q Treatments Start: 02/20/18 13:22 Freq: Status: Active Protocol: Document 03/12/18 17:33 [facility] (Rec: 03/13/18 09:40 [facility] [email or web address]) Therapeutic Exercises Sitting Exercises hammer Sitting Exercise Name supination, pronation, wrist extension with hammer Side left Reps/Minutes 10 each supination/pronation Sitting Exercise Name T-flexbar supination/pronation Side bilateral Resistance red flexbar Reps/Minutes x10 wrist flex/extension AROM Side left Reps/Minutes x10 Comments vs gravity- limited range but less pain Manual Therapy Treatment Soft Tissue Mobilization APL, EPB Body Location left Mobilization Type Rolling Strumming Intensity/Depth Moderate Body Position Sitting Joint Mobilizations L mid-carpal Direction PA Grade III Body Position Sitting Reps/Duration 8 min L Radiocarpal Direction PA, AP with traction Grade III Body Position Sitting Reps/Duration 5 min each Taping 1 Body Location L wrist Type of Tape Kinesio Tape Comments Y strip palmar wrist extending one part of Y strip over snuff box and other part of Y strip over volar forearm Nerve Glides median nerve Details gentle Body Position Sitting Reps/Duration 10 Comments Left Manual Techniques L wrist and thumb ROM Type thumb abduction and extension, wrist flexion and extension, ulnar deviation Body Position Sitting Reps/Duration 10 each PT-OP-R Modalities Start: 02/20/18 13:22 Freq: Status: Active Protocol: Document 03/12/18 17:33 [facility] (Rec: 03/13/18 09:40 [facility] [email or web address]) Ultrasound Therapy Treatment L thumb/wrist- APL, EPB Treatment Duration (minutes) 8 Patient Position Sitting Coupling Medium Ultrasound Gel Applicator Size (cm2) 2 Frequency Setting (mHz) 3 Mode Setting Pulsed Duty Cycle 50 Intensity Setting (w/cm2) 0.8 PT-OP-T Assessment and Plan Start: 02/20/18 13:22 Freq: Status: Active Protocol: Document 03/12/18 17:33 [facility] (Rec: 03/13/18 09:40 [facility] [email or web address]) Physical Therapy Assessment Assessment Summary Assessment Pt tolerated progression of exercises without pain, although unable to tolerate resistance into wrist flexion without discomfort. Pt with hypomobile midcarpal joint, likely limiting her wrist flexion ROM as well as discomfort in APL and EPB on the L. Physical Therapy Plan Frequency and Duration Frequency of Treatment 2x/Week Duration of Treatment 12 weeks Plan of Care Start Date 02/19/18 Plan of Care End Date 05/14/18 Next Visit Focus/Plan Next Note Type Treatment Note Next Visit Plan emphasis on manual therapy- L wrist ROM, joint mobilizations to progress L wrist flexion
--- NOTE | 2018-03-14 15:20 | PT.OTN ---
Current Diagnoses Cervicalgia (03/14/18) Dorsalgia, unspecified (03/14/18) Other muscle spasm (03/14/18) Radial styloid tenosynovitis [de Quervain] (03/14/18) Physical Therapy Treatment Note PT-OP-A Visit Information Start: 02/20/18 13:22 Freq: Status: Active Protocol: Document 03/14/18 15:20 [facility] (Rec: 03/15/18 13:50 [facility] [email or web address]) Out-Patient Physical Therapy Visit Information Visit Information Visit Type Treatment Note Visit Start Time 15:20 Visit Stop Time 16:00 Total Visit Minutes 40 Visit Number 8 Number of SCANNING MANAGER Visits 0 Evaluation Information Evaluation Date 02/19/18 PT-OP-B Current Condition Start: 02/20/18 13:22 Freq: Status: Active Protocol: Document 02/19/18 17:36 [facility] (Rec: 02/20/18 13:39 [facility] [email or web address]) Current Condition History of Current Condition Onset Date November 2017 Current Complaints L sided neck, shoulder, wrist pain History of Current Condition Pt is a 72 y/o female presenting to physical therapy with a c/o L sided neck and shoulder pain ongoing for many years, as well as L wrist pain, onset November 2017 after seeding her lawn. Pt is L hand dominant. Pt notes that typically, she wakes up in the morning with numbness/ tingling in L hand digits 3 and 4, but goes away after she gets up out of bed. She sleeps on her R side with one pillow, L arm at her side. Pt does have a thumb and wrist spica brace, but states it is too small for her and she ends up taking it off in the middle of the night due to pain from the brace being too tight. No imaging has been performed. Pain in the wrist and thumb region typically are worse with grasping and activities using the hand (i.e . holding coffee cup, driving) . Treatment Goals Patient/Caregiver Goals to get back to her upper body exercise routine with her class, write a check, be able to garden Prior Functional Status Baseline Function- ADL's Independent Baseline Function- Recreation/Hobbies indep. 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 PT-OP-F Manual Assessment Start: 02/20/18 13:22 Freq: Status: Active Protocol: Document 02/19/18 17:36 [facility] (Rec: 02/20/18 18:05 [facility] [email or web address]) Manual Assessments Soft Tissue Assessment Soft Tissue Mobility Assessment Tenderness to palpation: L extensor pollicis brevis, abductor pollicis longus, wrist extensor common proximal attachement. L upper trapezius and levator scapulae . PT-OP-H Neuro Start: 02/20/18 13:22 Freq: Status: Active Protocol: Document 02/19/18 17:36 [facility] (Rec: 02/20/18 18:05 [facility] [email or web address]) Sensation Evaluation Comments Summary Comments WNL but pt reports occasional tingling digits 3 and 4 on the L hand. Deep Tendon Reflex & Clonus Assessment Deep Tendon Reflex Left Brachioradialis Deep Tendon Reflex 3+ Normal But Brisk Right Brachioradialis Deep Tendon Reflex 2+ Normal Bilateral Tricep Deep Tendon Reflex 2+ Normal Bilateral Bicep Deep Tendon Reflex 2+ Normal PT-OP-K Range of Motion Start: 02/20/18 13:22 Freq: Status: Active Protocol: Document 03/07/18 16:00 [facility] (Rec: 03/08/18 13:22 [facility] [email or web address]) Wrist Goniometric Range of Motion Wrist Measured in Degrees Left Wrist ROM WFL No Flexion Active (degrees) 30 Flexion Passive (degrees) 70 Extension Active (degrees) 70 PT-OP-L Special Tests Start: 02/20/18 13:22 Freq: Status: Active Protocol: Document 02/19/18 17:36 [facility] (Rec: 02/20/18 18:05 [facility] [email or web address]) Special Tests Cervical Spine Special Tests Upper Limb Tension Test Test Results positive B Comments ulnar, median, radial Vertebral Artery Test Results negative Spurling's Test Test Results negative B Foraminal Compression Test Results negative B Shoulder Special Tests Huggins Jourdan Impingement Test Results negative B Empty Can Test Results negative B Drop Arm Rotator Cuff Test Results negative B Lift-Off Rotator Cuff Test Results negative B Wrist/Hand Special Tests Kasia's Test Results positive L, negative R Lateral Epicondylitis Extended Test Results negative B Vascular Special Tests Adson Maneuver Test Results negative B PT-OP-M Strength Start: 02/20/18 13:22 Freq: Status: Active Protocol: Document 02/19/18 17:36 [facility] (Rec: 02/20/18 18:05 [facility] [email or web address]) Shoulder Strength Shoulder Manual Muscle Testing Left Flexion 5 Normal Abduction (C5) 5 Normal External Rotation 4+ Good+ Internal Rotation 5 Normal Right Flexion 5 Normal Abduction (C5) 5 Normal External Rotation 5 Normal Internal Rotation 5 Normal Elbow/Forearm Strength Elbow and Forearm Manual Muscle Testing Right Flexion (C6) 5 Normal Extension (C7) 5 Normal Pronation 5 Normal Supination 5 Normal Left Flexion (C6) 5 Normal Extension (C7) 4 Good Pronation 4 Good Supination 4 Good Wrist Strength Wrist Manual Muscle Testing Left Flexion (C7) 3+ Fair+ Extension (C6) 3 Fair Ulnar Deviation 3 Fair Radial Deviation 3 Fair Reason Not Measured Pain Right Flexion (C7) 5 Normal Extension (C6) 5 Normal Ulnar Deviation 5 Normal Radial Deviation 5 Normal Hand Hospitality Specialist/Pinch Strength Hand Dominance Hand Dominance Left Hand Strength Right Comments elbow flexed 90 deg, arm @ side: 47 lbs elbow extended 52 lbs Left Comments elbow flexed 90 deg, arm @ side: 44 lbs elbow extended 53 lbs PT-OP-Q Treatments Start: 02/20/18 13:22 Freq: Status: Active Protocol: Document 03/14/18 15:20 [facility] (Rec: 03/15/18 13:50 [facility] [email or web address]) Manual Therapy Treatment Soft Tissue Mobilization APL, EPB Body Location left Mobilization Type Rolling Strumming Intensity/Depth Moderate Body Position Sitting Joint Mobilizations L mid-carpal Direction PA Grade III Body Position Sitting Reps/Duration 12 min L Radiocarpal Direction PA, AP with traction Grade III Body Position Sitting Reps/Duration 6 min each Nerve Glides median nerve Details gentle Body Position Sitting Reps/Duration 10 Comments Left PT-OP-R Modalities Start: 02/20/18 13:22 Freq: Status: Active Protocol: Document 03/14/18 15:20 [facility] (Rec: 03/15/18 13:50 [facility] [email or web address]) Ultrasound Therapy Treatment L thumb/wrist- APL, EPB Treatment Duration (minutes) 8 Patient Position Sitting Coupling Medium Ultrasound Gel Applicator Size (cm2) 2 Frequency Setting (mHz) 3 Mode Setting Pulsed Duty Cycle 50 Intensity Setting (w/cm2) 0.8 PT-OP-T Assessment and Plan Start: 02/20/18 13:22 Freq: Status: Active Protocol: Document 03/14/18 15:20 [facility] (Rec: 03/15/18 13:50 [facility] [email or web address]) Physical Therapy Assessment Assessment Summary Assessment Pt with improved L wrist flexion after midcarpal joint mobilizations and no c/o pain in thumb region. Pt does continue to get discomfort with daily tasks when using her L hand and not yet back to her prior level of functional task tolerance. Physical Therapy Plan Frequency and Duration Frequency of Treatment 2x/Week Duration of Treatment 12 weeks Plan of Care Start Date 02/19/18 Plan of Care End Date 05/14/18 Next Visit Focus/Plan Next Note Type Treatment Note Next Visit Plan re-assess ROM, advance HEP as tolerated.
--- NOTE | 2018-03-28 09:00 | PT.OTN ---
Current Diagnoses Cervicalgia (03/28/18) Dorsalgia, unspecified (03/28/18) Other muscle spasm (03/28/18) Radial styloid tenosynovitis [de Quervain] (03/28/18) Physical Therapy Treatment Note PT-OP-A Visit Information Start: 02/20/18 13:22 Freq: Status: Active Protocol: Document 03/28/18 09:00 [facility] (Rec: 03/28/18 09:58 [facility] [email or web address]) Out-Patient Physical Therapy Visit Information Visit Information Visit Type Treatment Note Visit Start Time 09:00 Visit Stop Time 09:50 Total Visit Minutes 50 Visit Number 9 Number of TV TECHNICIAN Visits 0 Evaluation Information Evaluation Date 02/19/18 PT-OP-B Current Condition Start: 02/20/18 13:22 Freq: Status: Active Protocol: Document 02/19/18 17:36 [facility] (Rec: 02/20/18 13:39 [facility] [email or web address]) Current Condition History of Current Condition Onset Date November 2017 Current Complaints L sided neck, shoulder, wrist pain History of Current Condition Pt is a 72 y/o female presenting to physical therapy with a c/o L sided neck and shoulder pain ongoing for many years, as well as L wrist pain, onset November 2017 after seeding her lawn. Pt is L hand dominant. Pt notes that typically, she wakes up in the morning with numbness/ tingling in L hand digits 3 and 4, but goes away after she gets up out of bed. She sleeps on her R side with one pillow, L arm at her side. Pt does have a thumb and wrist spica brace, but states it is too small for her and she ends up taking it off in the middle of the night due to pain from the brace being too tight. No imaging has been performed. Pain in the wrist and thumb region typically are worse with grasping and activities using the hand (i.e . holding coffee cup, driving) . Treatment Goals Patient/Caregiver Goals to get back to her upper body exercise routine with her class, write a check, be able to garden Prior Functional Status Baseline Function- ADL's Independent Baseline Function- Recreation/Hobbies indep. gardening, exercising with UE work with a group of women her Personal Factors Other Personal Factors That May Effect h/o chronic neck pain Therapy/Recovery PT-OP-C Subjective Start: 02/20/18 13:22 Freq: Status: Active Protocol: Document 03/28/18 09:00 [facility] (Rec: 03/28/18 09:58 [facility] [email or web address]) OP-PT Subjective Patient Comments Patient Comments Pt reports her handwriting is improving and able to do a little bit more home activities without restrictions, but still not able to lift much with the L hand. PT-OP-F Manual Assessment Start: 02/20/18 13:22 Freq: Status: Active Protocol: Document 02/19/18 17:36 [facility] (Rec: 02/20/18 18:05 [facility] [email or web address]) Manual Assessments Soft Tissue Assessment Soft Tissue Mobility Assessment Tenderness to palpation: L extensor pollicis brevis, abductor pollicis longus, wrist extensor common proximal attachement. L upper trapezius and levator scapulae . PT-OP-H Neuro Start: 02/20/18 13:22 Freq: Status: Active Protocol: Document 02/19/18 17:36 [facility] (Rec: 02/20/18 18:05 [facility] [email or web address]) Sensation Evaluation Comments Summary Comments WNL but pt reports occasional tingling digits 3 and 4 on the L hand. Deep Tendon Reflex & Clonus Assessment Deep Tendon Reflex Left Brachioradialis Deep Tendon Reflex 3+ Normal But Brisk Right Brachioradialis Deep Tendon Reflex 2+ Normal Bilateral Tricep Deep Tendon Reflex 2+ Normal Bilateral Bicep Deep Tendon Reflex 2+ Normal PT-OP-K Range of Motion Start: 02/20/18 13:22 Freq: Status: Active Protocol: Document 03/07/18 16:00 [facility] (Rec: 03/08/18 13:22 [facility] [email or web address]) Wrist Goniometric Range of Motion Wrist Measured in Degrees Left Wrist ROM WFL No Flexion Active (degrees) 30 Flexion Passive (degrees) 70 Extension Active (degrees) 70 PT-OP-L Special Tests Start: 02/20/18 13:22 Freq: Status: Active Protocol: Document 02/19/18 17:36 [facility] (Rec: 02/20/18 18:05 [facility] [email or web address]) Special Tests Cervical Spine Special Tests Upper Limb Tension Test Test Results positive B Comments ulnar, median, radial Vertebral Artery Test Results negative Spurling's Test Test Results negative B Foraminal Compression Test Results negative B Shoulder Special Tests Huggins Jourdan Impingement Test Results negative B Empty Can Test Results negative B Drop Arm Rotator Cuff Test Results negative B Lift-Off Rotator Cuff Test Results negative B Wrist/Hand Special Tests Kasia's Test Results positive L, negative R Lateral Epicondylitis Extended Test Results negative B Vascular Special Tests Adson Maneuver Test Results negative B PT-OP-M Strength Start: 02/20/18 13:22 Freq: Status: Active Protocol: Document 02/19/18 17:36 [facility] (Rec: 02/20/18 18:05 [facility] [email or web address]) Shoulder Strength Shoulder Manual Muscle Testing Left Flexion 5 Normal Abduction (C5) 5 Normal External Rotation 4+ Good+ Internal Rotation 5 Normal Right Flexion 5 Normal Abduction (C5) 5 Normal External Rotation 5 Normal Internal Rotation 5 Normal Elbow/Forearm Strength Elbow and Forearm Manual Muscle Testing Right Flexion (C6) 5 Normal Extension (C7) 5 Normal Pronation 5 Normal Supination 5 Normal Left Flexion (C6) 5 Normal Extension (C7) 4 Good Pronation 4 Good Supination 4 Good Wrist Strength Wrist Manual Muscle Testing Left Flexion (C7) 3+ Fair+ Extension (C6) 3 Fair Ulnar Deviation 3 Fair Radial Deviation 3 Fair Reason Not Measured Pain Right Flexion (C7) 5 Normal Extension (C6) 5 Normal Ulnar Deviation 5 Normal Radial Deviation 5 Normal Hand Comfort Station Attendant/Pinch Strength Hand Dominance Hand Dominance Left Hand Strength Right Comments elbow flexed 90 deg, arm @ side: 47 lbs elbow extended 52 lbs Left Comments elbow flexed 90 deg, arm @ side: 44 lbs elbow extended 53 lbs PT-OP-Q Treatments Start: 02/20/18 13:22 Freq: Status: Active Protocol: Document 03/28/18 09:00 [facility] (Rec: 03/28/18 09:58 [facility] [email or web address]) Manual Therapy Treatment Soft Tissue Mobilization L upper trapezius, levator Mobilization Type Myofascial Release Strumming Sustained Pressure Trigger Point Release Intensity/Depth Moderate Body Position Supine APL, EPB Body Location left Mobilization Type Rolling Strumming Intensity/Depth Moderate Body Position Sitting Joint Mobilizations L mid-carpal Direction PA Grade III Body Position Sitting L Radiocarpal Direction PA, AP with traction Grade III Body Position Sitting Taping 1 Body Location L wrist Type of Tape Kinesio Tape Comments Y strip palmar wrist extending one part of Y strip over snuff box and other part of Y strip over volar forearm Self-Care/Home Management Treatment Education Patient Education Pain Management Other Education handout for contrast bath for L hand PT-OP-R Modalities Start: 02/20/18 13:22 Freq: Status: Active Protocol: Document 03/28/18 09:00 [facility] (Rec: 03/28/18 09:58 [facility] [email or web address]) Ultrasound Therapy Treatment L thumb/wrist- APL, EPB Treatment Duration (minutes) 8 Patient Position Sitting Coupling Medium Ultrasound Gel Applicator Size (cm2) 2 Frequency Setting (mHz) 3 Mode Setting Pulsed Duty Cycle 50 Intensity Setting (w/cm2) 0.8 PT-OP-T Assessment and Plan Start: 02/20/18 13:22 Freq: Status: Active Protocol: Document 03/28/18 09:00 [facility] (Rec: 03/28/18 09:58 [facility] [email or web address]) Physical Therapy Assessment Assessment Summary Assessment Pt with reported improvements with daily activities, although still not able to perform heavy duties as prior to this injury. Physical Therapy Plan Frequency and Duration Frequency of Treatment 2x/Week Duration of Treatment 12 weeks Plan of Care Start Date 02/19/18 Plan of Care End Date 05/14/18 Next Visit Focus/Plan Next Note Type Progress Note Next Visit Plan 10th visit- reassess obj measures
--- NOTE | 2018-04-09 16:50 | PT.OTN ---
Current Diagnoses Cervicalgia (04/09/18) Dorsalgia, unspecified (04/09/18) Other muscle spasm (04/09/18) Radial styloid tenosynovitis [de Quervain] (04/09/18) Physical Therapy Treatment Note PT-OP-A Visit Information Start: 02/20/18 13:22 Freq: Status: Active Protocol: Document 04/09/18 16:50 RCC (Rec: 04/09/18 17:40 RCC [id number]) Out-Patient Physical Therapy Visit Information Visit Information Visit Type Treatment Note Visit Start Time 16:50 Visit Stop Time 17:30 Total Visit Minutes 40 Visit Number 10 Number of OPS MANAGER Visits 0 Evaluation Information Evaluation Date 02/19/18 PT-OP-B Current Condition Start: 02/20/18 13:22 Freq: Status: Active Protocol: Document 02/19/18 17:36 RCC (Rec: 02/20/18 13:39 RCC [email or web address]) Current Condition History of Current Condition Onset Date November 2017 Current Complaints L sided neck, shoulder, wrist pain History of Current Condition Pt is a 72 y/o female presenting to physical therapy with a c/o L sided neck and shoulder pain ongoing for many years, as well as L wrist pain, onset November 2017 after seeding her lawn. Pt is L hand dominant. Pt notes that typically, she wakes up in the morning with numbness/ tingling in L hand digits 3 and 4, but goes away after she gets up out of bed. She sleeps on her R side with one pillow, L arm at her side. Pt does have a thumb and wrist spica brace, but states it is too small for her and she ends up taking it off in the middle of the night due to pain from the brace being too tight. No imaging has been performed. Pain in the wrist and thumb region typically are worse with grasping and activities using the hand (i.e . holding coffee cup, driving) . Treatment Goals Patient/Caregiver Goals to get back to her upper body exercise routine with her class, write a check, be able to garden Prior Functional Status Baseline Function- ADL's Independent Baseline Function- Recreation/Hobbies indep. gardening, exercising with UE work with a group of women her Personal Factors Other Personal Factors That May Effect h/o chronic neck pain Therapy/Recovery PT-OP-C Subjective Start: 02/20/18 13:22 Freq: Status: Active Protocol: Document 04/09/18 16:50 RCC (Rec: 04/09/18 17:40 RCC [id number]) OP-PT Subjective Patient Comments Patient Comments Pt states the contrast bath has felt good, she is doing more with her L hand. She was able to write 3 cards for her grandchildren, but still increased difficulty with heavy activities. OP-PT Pain Assessment Location Left Lower Lateral Wrist Intensity 4 Scale Used Numeric (1 - 10) PT-OP-F Manual Assessment Start: 02/20/18 13:22 Freq: Status: Active Protocol: Document 02/19/18 17:36 RCC (Rec: 02/20/18 18:05 RCC [email or web address]) Manual Assessments Soft Tissue Assessment Soft Tissue Mobility Assessment Tenderness to palpation: L extensor pollicis brevis, abductor pollicis longus, wrist extensor common proximal attachement. L upper trapezius and levator scapulae . PT-OP-H Neuro Start: 02/20/18 13:22 Freq: Status: Active Protocol: Document 02/19/18 17:36 RCC (Rec: 02/20/18 18:05 RCC [email or web address]) Sensation Evaluation Comments Summary Comments WNL but pt reports occasional tingling digits 3 and 4 on the L hand. Deep Tendon Reflex & Clonus Assessment Deep Tendon Reflex Left Brachioradialis Deep Tendon Reflex 3+ Normal But Brisk Right Brachioradialis Deep Tendon Reflex 2+ Normal Bilateral Tricep Deep Tendon Reflex 2+ Normal Bilateral Bicep Deep Tendon Reflex 2+ Normal PT-OP-K Range of Motion Start: 02/20/18 13:22 Freq: Status: Active Protocol: Document 04/09/18 16:50 RCC (Rec: 04/09/18 17:40 RCC [id number]) Wrist Goniometric Range of Motion Wrist Measured in Degrees Right Flexion Active (degrees) 80 Extension Active (degrees) 75 Left Wrist ROM WFL No Flexion Active (degrees) 60 Flexion Passive (degrees) 70 Extension Active (degrees) 70 PT-OP-L Special Tests Start: 02/20/18 13:22 Freq: Status: Active Protocol: Document 02/19/18 17:36 RCC (Rec: 02/20/18 18:05 RCC [email or web address]) Special Tests Cervical Spine Special Tests Upper Limb Tension Test Test Results positive B Comments ulnar, median, radial Vertebral Artery Test Results negative Spurling's Test Test Results negative B Foraminal Compression Test Results negative B Shoulder Special Tests Huggins Jourdan Impingement Test Results negative B Empty Can Test Results negative B Drop Arm Rotator Cuff Test Results negative B Lift-Off Rotator Cuff Test Results negative B Wrist/Hand Special Tests Kasia's Test Results positive L, negative R Lateral Epicondylitis Extended Test Results negative B Vascular Special Tests Adson Maneuver Test Results negative B PT-OP-M Strength Start: 02/20/18 13:22 Freq: Status: Active Protocol: Document 04/09/18 16:50 RCC (Rec: 04/09/18 17:40 [facility] [id number]) Wrist Strength Wrist Manual Muscle Testing Left Flexion (C7) 3+ Fair+ Extension (C6) 3+ Fair+ Ulnar Deviation 4- Good- Radial Deviation 3+ Fair+ Reason Not Measured Pain PT-OP-Q Treatments Start: 02/20/18 13:22 Freq: Status: Active Protocol: Document 04/09/18 16:50 RCC (Rec: 04/09/18 17:40 [facility] [id number]) Manual Therapy Treatment Soft Tissue Mobilization APL, EPB Body Location left Mobilization Type Rolling Strumming Intensity/Depth Moderate Body Position Sitting Joint Mobilizations L mid-carpal Direction PA Grade III Body Position Sitting L Radiocarpal Direction PA, AP with traction Grade III Body Position Sitting Taping 1 Body Location L wrist Type of Tape Kinesio Tape Comments Y strip palmar wrist extending one part of Y strip over snuff box and other part of Y strip over volar forearm Manual Techniques L wrist and thumb ROM Type thumb abduction and extension, wrist flexion and extension, ulnar deviation Body Position Sitting Reps/Duration 10 each Other Other Manual Treatments L wrist ROM and MMT- 6 min PT-OP-R Modalities Start: 02/20/18 13:22 Freq: Status: Active Protocol: Document 04/09/18 16:50 RCC (Rec: 04/09/18 17:40 RCC [id number]) Ultrasound Therapy Treatment L thumb/wrist- APL, EPB Treatment Duration (minutes) 8 Patient Position Sitting Coupling Medium Ultrasound Gel Applicator Size (cm2) 2 Frequency Setting (mHz) 3 Mode Setting Pulsed Duty Cycle 50 Intensity Setting (w/cm2) 0.8 PT-OP-T Assessment and Plan Start: 02/20/18 13:22 Freq: Status: Active Protocol: Document 04/09/18 16:50 [facility] (Rec: 04/09/18 17:40 RCC [id number]) Physical Therapy Assessment Goals pain L wrist Impairment pain in L wrist 5/10 Short Term Goal (STG) 3/10 or less rated pain in L wrist. 04/09/18: 4/10 rated pain, some progress STG Duration 6 weeks Jail Goal (LTG) pain 1/10 or less in L wrist. LTG Duration 12 weeks Recreational activities Impairment unable to participate in recreational activities Short Term Goal (STG) Pt will return to modified upper body exercises without increased L wrist pain for 30 min. 04/09/18: pt able to perform with modifed version using ankle weights around wrist. STG Duration 6 weeks Otr Flatbed Driver Goal (LTG) Pt will return to prior level of upper body exercises without increased L wrist pain , no modifications. LTG Duration 12 weeks QuickDASH Impairment QuickDASH score 52.27 Short Term Goal (STG) QuickDASH disability score to 40 or less to demonstrate improvements with upper body function and tasks. STG Duration achieved 04/09/18 Otr Flatbed Driver Goal (LTG) QuickDASH disability score to 30 or less to demonstrate improvements with upper body function and tasks. LTG Duration achieved 04/09/18 (score 29.5) L wrist ROM Impairment L wrist AROM Short Term Goal (STG) L wrist flexion to 45 degrees AROM. STG Duration achieved 04/09/18 Otr Flatbed Driver Goal (LTG) L wrist flexion to 60 degrees AROM or greater. LTG Duration achieved 04/09/18 UE weakness Impairment LUE weakness Short Term Goal (STG) Manual muscle testing: elbow extension to 4+/5, wrist at least 4/5 with extension and flexion to improve functional rn rehabilitation strength and tolerance. 04/09/18: good progress STG Duration 6 weeks Otr Flatbed Driver Goal (LTG) Manual muscle testing: elbow extension to 5/5, wrist at least 4+/5 with extension and flexion to improve functional rn rehabilitation strength and tolerance. LTG Duration 12 weeks Progress Towards Goals Progress Towards Goals Progressing Toward Goals Assessment Summary Assessment Pt with improved AROM of L wrist flexion to 60 degrees ( previously 30 degrees AROM on initial evaluation) and some improvements with L thumb and wrist strength. Pt continues to have difficulty with heavier activities, and still with pain in thumb and wrist when using her L hand a lot throughout the day, which is still below her prior level of function. Physical Therapy Plan Frequency and Duration Frequency of Treatment 2x/Week Duration of Treatment 12 weeks Plan of Care Start Date 02/19/18 Plan of Care End Date 05/14/18 Next Visit Focus/Plan Next Note Type Treatment Note Next Visit Plan cont. to prog. L thumb and wrist ROM and strength
--- NOTE | 2018-04-16 16:50 | PT.OTN ---
Current Diagnoses Cervicalgia (04/16/18) Dorsalgia, unspecified (04/16/18) Other muscle spasm (04/16/18) Radial styloid tenosynovitis [de Quervain] (04/16/18) Physical Therapy Treatment Note PT-OP-A Visit Information Start: 02/20/18 13:22 Freq: Status: Active Protocol: Document 04/16/18 16:50 RCC (Rec: 04/16/18 17:43 RCC [email or web address]) Out-Patient Physical Therapy Visit Information Visit Information Visit Type Treatment Note Visit Start Time 16:50 Visit Stop Time 17:31 Total Visit Minutes 41 Visit Number 11 Number of DIESEL ENGINE II PIPE FITTER Visits 0 Evaluation Information Evaluation Date 02/19/18 PT-OP-B Current Condition Start: 02/20/18 13:22 Freq: Status: Active Protocol: Document 02/19/18 17:36 RCC (Rec: 02/20/18 13:39 RCC [email or web address]) Current Condition History of Current Condition Onset Date November 2017 Current Complaints L sided neck, shoulder, wrist pain History of Current Condition Pt is a 72 y/o female presenting to physical therapy with a c/o L sided neck and shoulder pain ongoing for many years, as well as L wrist pain, onset November 2017 after seeding her lawn. Pt is L hand dominant. Pt notes that typically, she wakes up in the morning with numbness/ tingling in L hand digits 3 and 4, but goes away after she gets up out of bed. She sleeps on her R side with one pillow, L arm at her side. Pt does have a thumb and wrist spica brace, but states it is too small for her and she ends up taking it off in the middle of the night due to pain from the brace being too tight. No imaging has been performed. Pain in the wrist and thumb region typically are worse with grasping and activities using the hand (i.e . holding coffee cup, driving) . Treatment Goals Patient/Caregiver Goals to get back to her upper body exercise routine with her class, write a check, be able to garden Prior Functional Status Baseline Function- ADL's Independent Baseline Function- Recreation/Hobbies indep. gardening, exercising with UE work with a group of women her Personal Factors Other Personal Factors That May Effect h/o chronic neck pain Therapy/Recovery PT-OP-C Subjective Start: 02/20/18 13:22 Freq: Status: Active Protocol: Document 04/16/18 16:50 RCC (Rec: 04/16/18 17:43 RCC [email or web address]) OP-PT Subjective Patient Comments Patient Comments Pt was able to do more chores around the home and tasks outside which requring some lifting and carrying. She was able to write another card without pain. Patient Reported Progress Improving PT-OP-F Manual Assessment Start: 02/20/18 13:22 Freq: Status: Active Protocol: Document 02/19/18 17:36 RCC (Rec: 02/20/18 18:05 RCC [email or web address]) Manual Assessments Soft Tissue Assessment Soft Tissue Mobility Assessment Tenderness to palpation: L extensor pollicis brevis, abductor pollicis longus, wrist extensor common proximal attachement. L upper trapezius and levator scapulae . PT-OP-H Neuro Start: 02/20/18 13:22 Freq: Status: Active Protocol: Document 02/19/18 17:36 RCC (Rec: 02/20/18 18:05 RCC [email or web address]) Sensation Evaluation Comments Summary Comments WNL but pt reports occasional tingling digits 3 and 4 on the L hand. Deep Tendon Reflex & Clonus Assessment Deep Tendon Reflex Left Brachioradialis Deep Tendon Reflex 3+ Normal But Brisk Right Brachioradialis Deep Tendon Reflex 2+ Normal Bilateral Tricep Deep Tendon Reflex 2+ Normal Bilateral Bicep Deep Tendon Reflex 2+ Normal PT-OP-K Range of Motion Start: 02/20/18 13:22 Freq: Status: Active Protocol: Document 04/16/18 16:50 RCC (Rec: 04/16/18 17:43 RCC [email or web address]) Wrist Goniometric Range of Motion Wrist Measured in Degrees Left Wrist ROM WFL No Flexion Active (degrees) 65 Flexion Passive (degrees) 70 Extension Active (degrees) 70 PT-OP-L Special Tests Start: 02/20/18 13:22 Freq: Status: Active Protocol: Document 02/19/18 17:36 RCC (Rec: 02/20/18 18:05 RCC [email or web address]) Special Tests Cervical Spine Special Tests Upper Limb Tension Test Test Results positive B Comments ulnar, median, radial Vertebral Artery Test Results negative Spurling's Test Test Results negative B Foraminal Compression Test Results negative B Shoulder Special Tests Huggins Jourdan Impingement Test Results negative B Empty Can Test Results negative B Drop Arm Rotator Cuff Test Results negative B Lift-Off Rotator Cuff Test Results negative B Wrist/Hand Special Tests Kasia's Test Results positive L, negative R Lateral Epicondylitis Extended Test Results negative B Vascular Special Tests Adson Maneuver Test Results negative B PT-OP-M Strength Start: 02/20/18 13:22 Freq: Status: Active Protocol: Document 04/09/18 16:50 RCC (Rec: 04/09/18 17:40 RCC [id number]) Wrist Strength Wrist Manual Muscle Testing Left Flexion (C7) 3+ Fair+ Extension (C6) 3+ Fair+ Ulnar Deviation 4- Good- Radial Deviation 3+ Fair+ Reason Not Measured Pain PT-OP-Q Treatments Start: 02/20/18 13:22 Freq: Status: Active Protocol: Document 04/16/18 16:50 RCC (Rec: 04/16/18 17:43 RCC [email or web address]) Therapeutic Exercises Sitting Exercises wrist extension stretch Side left Reps/Minutes x15 sec Comments thumb in neutral position theraputty Sitting Exercise Name thumb abduction Side left Resistance red theraputty Reps/Minutes 2 reps wrist flex/extension AROM Side left Reps/Minutes x10 Comments vs gravity Manual Therapy Treatment Soft Tissue Mobilization APL, EPB Body Location left Mobilization Type Rolling Strumming Intensity/Depth Moderate Body Position Sitting Joint Mobilizations L mid-carpal Direction PA Grade III Body Position Sitting L Radiocarpal Direction PA, AP with traction Grade III Body Position Sitting Manual Techniques L wrist and thumb ROM Type thumb abduction and extension, wrist flexion and extension, ulnar deviation Body Position Sitting Reps/Duration 10 each PT-OP-R Modalities Start: 02/20/18 13:22 Freq: Status: Active Protocol: Document 04/16/18 16:50 RCC (Rec: 04/16/18 17:43 RCC [email or web address]) Ultrasound Therapy Treatment L thumb/wrist- APL, EPB Treatment Duration (minutes) 8 Patient Position Sitting Coupling Medium Ultrasound Gel Applicator Size (cm2) 2 Frequency Setting (mHz) 3 Mode Setting Pulsed Duty Cycle 50 Intensity Setting (w/cm2) 0.8 PT-OP-T Assessment and Plan Start: 02/20/18 13:22 Freq: Status: Active Protocol: Document 04/16/18 16:50 RCC (Rec: 04/16/18 17:43 RCC [email or web address]) Physical Therapy Assessment Assessment Summary Assessment Pt continues to make improvements with L wrist ROM and activity tolerance, as well as subjectively reporting improved functional tolerance . She is still below her prior level of function, but is progressing well. Physical Therapy Plan Frequency and Duration Frequency of Treatment 2x/Week Duration of Treatment 12 weeks Plan of Care Start Date 02/19/18 Plan of Care End Date 05/14/18 Next Visit Focus/Plan Next Note Type Treatment Note Next Visit Plan assess tolerance to increased resistance with theraputty and wrist/thumb exercises.
--- NOTE | 2018-07-24 14:21 | PT.OPDS ---
Current Diagnoses Cervicalgia (04/16/18) Dorsalgia, unspecified (04/16/18) Other muscle spasm (04/16/18) Radial styloid tenosynovitis [de Quervain] (04/16/18) Provider Visit Care Team Role Provider Type Sol Collado PA-C Attending Provider Advanced Mandate Retail Service Merchandiser Primary Care Provider Specialty: Medical Address: [address] [place] [address], [facility] Email: [email or web address] Visit Number Visit Number 11 Discharge Summary PT-OP-B Current Condition Start: 02/20/18 13:22 Freq: Status: Active Protocol: Document 02/19/18 17:36 RCC (Rec: 02/20/18 13:39 RCC [email or web address]) Current Condition History of Current Condition Onset Date November 2017 Current Complaints L sided neck, shoulder, wrist pain History of Current Condition Pt is a 72 y/o female presenting to physical therapy with a c/o L sided neck and shoulder pain ongoing for many years, as well as L wrist pain, onset November 2017 after seeding her lawn. Pt is L hand dominant. Pt notes that typically, she wakes up in the morning with numbness/ tingling in L hand digits 3 and 4, but goes away after she gets up out of bed. She sleeps on her R side with one pillow, L arm at her side. Pt does have a thumb and wrist spica brace, but states it is too small for her and she ends up taking it off in the middle of the night due to pain from the brace being too tight. No imaging has been performed. Pain in the wrist and thumb region typically are worse with grasping and activities using the hand (i.e . holding coffee cup, driving) . Treatment Goals Patient/Caregiver Goals to get back to her upper body exercise routine with her class, write a check, be able to garden Prior Functional Status Baseline Function- ADL's Independent Baseline Function- Recreation/Hobbies indep. gardening, exercising with UE work with a group of women her Personal Factors Other Personal Factors That May Effect h/o chronic neck pain Therapy/Recovery PT-OP-C Subjective Start: 02/20/18 13:22 Freq: Status: Active Protocol: Document 07/24/18 14:18 RCC (Rec: 07/24/18 14:21 RCC [email or web address]) OP-PT Subjective Patient Comments Patient Comments pt reports that her hand/wrist still bothers her from time to time, but the contrast bath helps and she knows how to tape it if needed. PT-OP-F Manual Assessment Start: 02/20/18 13:22 Freq: Status: Active Protocol: Document 02/19/18 17:36 RCC (Rec: 02/20/18 18:05 RCC [email or web address]) Manual Assessments Soft Tissue Assessment Soft Tissue Mobility Assessment Tenderness to palpation: L extensor pollicis brevis, abductor pollicis longus, wrist extensor common proximal attachement. L upper trapezius and levator scapulae . PT-OP-H Neuro Start: 02/20/18 13:22 Freq: Status: Active Protocol: Document 02/19/18 17:36 RCC (Rec: 02/20/18 18:05 RCC [email or web address]) Sensation Evaluation Comments Summary Comments WNL but pt reports occasional tingling digits 3 and 4 on the L hand. Deep Tendon Reflex & Clonus Assessment Deep Tendon Reflex Left Brachioradialis Deep Tendon Reflex 3+ Normal But Brisk Right Brachioradialis Deep Tendon Reflex 2+ Normal Bilateral Tricep Deep Tendon Reflex 2+ Normal Bilateral Bicep Deep Tendon Reflex 2+ Normal PT-OP-K Range of Motion Start: 02/20/18 13:22 Freq: Status: Active Protocol: Document 04/16/18 16:50 RCC (Rec: 04/16/18 17:43 RCC [email or web address]) Wrist Goniometric Range of Motion Wrist Measured in Degrees Left Wrist ROM WFL No Flexion Active (degrees) 65 Flexion Passive (degrees) 70 Extension Active (degrees) 70 PT-OP-L Special Tests Start: 02/20/18 13:22 Freq: Status: Active Protocol: Document 02/19/18 17:36 RCC (Rec: 02/20/18 18:05 RCC [email or web address]) Special Tests Cervical Spine Special Tests Upper Limb Tension Test Test Results positive B Comments ulnar, median, radial Vertebral Artery Test Results negative Spurling's Test Test Results negative B Foraminal Compression Test Results negative B Shoulder Special Tests Huggins Jourdan Impingement Test Results negative B Empty Can Test Results negative B Drop Arm Rotator Cuff Test Results negative B Lift-Off Rotator Cuff Test Results negative B Wrist/Hand Special Tests Kasia's Test Results positive L, negative R Lateral Epicondylitis Extended Test Results negative B Vascular Special Tests Adson Maneuver Test Results negative B PT-OP-M Strength Start: 02/20/18 13:22 Freq: Status: Active Protocol: Document 04/09/18 16:50 RCC (Rec: 04/09/18 17:40 RCC [id number]) Wrist Strength Wrist Manual Muscle Testing Left Flexion (C7) 3+ Fair+ Extension (C6) 3+ Fair+ Ulnar Deviation 4- Good- Radial Deviation 3+ Fair+ Reason Not Measured Pain PT-OP-T Assessment and Plan Start: 02/20/18 13:22 Freq: Status: Active Protocol: Document 07/24/18 14:18 RCC (Rec: 07/24/18 14:21 RCC [email or web address]) Physical Therapy Assessment Goals pain L wrist Impairment pain in L wrist 5/10 Short Term Goal (STG) 3/10 or less rated pain in L wrist. 04/09/18: 4/10 rated pain, some progress STG Duration 6 weeks Half-Way Goal (LTG) pain 1/10 or less in L wrist. LTG Duration 12 weeks Recreational activities Impairment unable to participate in recreational activities Short Term Goal (STG) Pt will return to modified upper body exercises without increased L wrist pain for 30 min. 04/09/18: pt able to perform with modifed version using ankle weights around wrist. STG Duration 6 weeks Tugboat Dispatcher Goal (LTG) Pt will return to prior level of upper body exercises without increased L wrist pain , no modifications. LTG Duration 12 weeks QuickDASH Impairment QuickDASH score 52.27 Short Term Goal (STG) QuickDASH disability score to 40 or less to demonstrate improvements with upper body function and tasks. STG Duration achieved 04/09/18 Tugboat Dispatcher Goal (LTG) QuickDASH disability score to 30 or less to demonstrate improvements with upper body function and tasks. LTG Duration achieved 04/09/18 (score 29.5) L wrist ROM Impairment L wrist AROM Short Term Goal (STG) L wrist flexion to 45 degrees AROM. STG Duration achieved 04/09/18 Half-Way Goal (LTG) L wrist flexion to 60 degrees AROM or greater. LTG Duration achieved 04/09/18 UE weakness Impairment LUE weakness Short Term Goal (STG) Manual muscle testing: elbow extension to 4+/5, wrist at least 4/5 with extension and flexion to improve functional yield analyst strength and tolerance. 04/09/18: good progress STG Duration 6 weeks Half-Way Goal (LTG) Manual muscle testing: elbow extension to 5/5, wrist at least 4+/5 with extension and flexion to improve functional yield analyst strength and tolerance. LTG Duration 12 weeks Assessment Summary Assessment Pt achieved 50% of her established goals and was progressing with some or good progress with the other 50% prior to her d/c. Pt was educated on the process of recovery and after discussion with her she felt comfortable with doing her HEP, taping PRN with kinesiotape and doing contrast baths to assist with pain as needed. Pt at this time is no longer attending physical therapy, and will be d/c at this time. Pt is aware and comfortable with this. Physical Therapy Plan Discharge Physical Therapy Discharge Reasons No Longer Attending PT
== END 2018-07-25 09:45 | disposition home or self-care (01) ==
LOC: PHYS 16:45
PROVIDERS: PCP Physician Assistant; Visit Provider Physician Assistant
DX: M54.2 Cervicalgia (principal); M62.838 Other muscle spasm; M54.9 Dorsalgia, unspecified; M65.4 Radial styloid tenosynovitis [de Quervain]
CPT/HCPCS: 97035; 97110; 97140; 97161

== ENCOUNTER → 2019-01-02 13:34 | Outpatient (CLI) | payer MEDICARE, SELFPAY ==
--- NOTE | 2019-01-02 | DI.MG.S_ITS ---
BILATERAL DIGITAL SCREENING MAMMOGRAM 3D/2D WITH CAD: 01/02/2019 CLINICAL: Routine screening. Comparison is made to exams dated: 12/31/2016 mammogram, 05/13/2014 mammogram, and 01/13/2013 mammogram - [facility]. There are scattered fibroglandular elements in both breasts. Current study was also evaluated with a Computer Aided Detection (CAD) system. No significant masses, calcifications, or other findings are seen in either breast. There has been no significant interval change. IMPRESSION: NEGATIVE There is no mammographic evidence of malignancy. A 1 year screening mammogram is recommended. This exam was interpreted at Station ID: [id number]. NOTE: For mammograms, a report in lay terms will be sent to the patient. Approximately 15% of breast malignancies will not be visualized mammographically. In the management of a palpable breast mass, a negative mammogram must not discourage biopsy of a clinically suspicious lesion. Electronically Signed By: Be luther/kaela:01/05/2019 11:41:18 letter sent: Normal Exam ACR BI-RADS Category 1: Negative [id number]
== END ==
PROVIDERS: PCP Physician Assistant; Visit Provider Physician Assistant
DX: Z12.31 Encounter for screening mammogram for malignant neoplasm of breast (principal)
CPT/HCPCS: 77063; 77067

== ENCOUNTER → 2020-04-09 11:03 | Outpatient (CLI) | payer MEDICARE, SELFPAY ==
--- NOTE | 2020-04-09 | DI.MG.S_ITS ---
BILATERAL DIGITAL SCREENING MAMMOGRAM 3D/2D WITH CAD: 04/09/2020 CLINICAL: Routine screening. Comparison is made to exams dated: 01/02/2019 mammogram, 12/31/2016 mammogram, and 05/13/2014 mammogram - [facility]. There are scattered fibroglandular elements in both breasts. Current study was also evaluated with a Computer Aided Detection (CAD) system. There is a possible 0.5 cm oval asymmetry in the right breast posterior depth superior region seen on the mediolateral oblique view only. No other significant masses, calcifications, or other findings are seen in either breast. IMPRESSION: INCOMPLETE: NEEDS ADDITIONAL IMAGING EVALUATION The possible 0.5 cm oval asymmetry in the right breast is indeterminate. Additional views with possible ultrasound are recommended. This exam was interpreted at Station ID: [id number]. NOTE: For mammograms, a report in lay terms will be sent to the patient. Approximately 15% of breast malignancies will not be visualized mammographically. In the management of a palpable breast mass, a negative mammogram must not discourage biopsy of a clinically suspicious lesion. Electronically Signed By: Be Padilla M.D. at/:04/11/2020 08:01:39 letter sent: Additional Imaging Needed ACR BI-RADS Category 0: Incomplete 3340F
== END ==
PROVIDERS: PCP Registered Nurse Diabetes Educator; Referring Provider Registered Nurse Diabetes Educator; Visit Provider Registered Nurse Diabetes Educator
DX: Z12.31 Encounter for screening mammogram for malignant neoplasm of breast (principal)
CPT/HCPCS: 77063; 77067

== ENCOUNTER → 2020-04-21 14:49 | Outpatient (CLI) | payer MEDICARE, SELFPAY ==
--- NOTE | 2020-04-21 | DI.MG.S_ITS ---
UNILATERAL RIGHT DIGITAL DIAGNOSTIC MAMMOGRAM 3D/2D WITH ADDITIONAL VIEWS: 04/21/2020 CLINICAL: Additional evaluation requested from prior study. Comparison is made to exams dated: 04/09/2020 mammogram, 01/02/2019 mammogram, and 12/31/2016 mammogram - [facility]. There are scattered fibroglandular elements in right breast. The possible benign 0.5 cm oval asymmetry in the right breast posterior depth superior region seen on the mediolateral oblique view only is not reproduced and presumably represented superimposed breast tissue. This is not seen in additional views. No other significant masses or calcifications are seen in the breast. IMPRESSION: BENIGN There is no mammographic evidence of malignancy. Return to annual mammogram screening schedule is recommended. This exam was interpreted at Station ID: [id number]. NOTE: For mammograms, a report in lay terms will be sent to the patient. Approximately 15% of breast malignancies will not be visualized mammographically. In the management of a palpable breast mass, a negative mammogram must not discourage biopsy of a clinically suspicious lesion. Electronically Signed By: Panfilo Chapin acr/:04/21/2020 15:44:44 letter sent: Normal Exam ACR BI-RADS Category 2: Benign Finding(s) 3342F
== END ==
PROVIDERS: PCP Registered Nurse Diabetes Educator; Referring Provider Registered Nurse Diabetes Educator; Visit Provider Registered Nurse Diabetes Educator
DX: R92.8 Other abnormal and inconclusive findings on diagnostic imaging of breast (principal)
CPT/HCPCS: 77065; G0279

== ENCOUNTER → 2020-05-09 08:15 | Outpatient (CLI) | payer MEDICARE, SELFPAY ==
[2020-05-09 08:58] LABS: Hemoglobin 13.6 g/dL (12.0-16.0); Mean Corpuscular HGB Conc 34.1 % (30-36); Mean Corpuscular Hemoglobin 30.4 PG (26-34); Mean Corpuscular Volume 89.4 fL (80-100); Platelet Count 237 X10^3/uL (150-400); Red Blood Cell Count 4.48 X10^6/uL (4.0-5.2); Red Cell Distribution Width 13.2 % (11.6-14.8); White Blood Cell Count 5.7 X10^3/uL (4.5-11.0)
[2020-05-09 09:06] LABS: Alanine Aminotransferase 19 IU/L (<35); Albumin 4.5 g/dL (3.5-5.0); Albumin Globulin Ratio 1.4 (1.0-2.8); Alkaline Phosphatase 57 U/L (38-126); Aspartate Aminotransferase 26 IU/L (14-36); Bilirubin Total 0.5 mg/dL (0.2-1.3); Blood Urea Nitrogen 22 mg/dL (7-17); Calcium 9.6 mg/dL (8.4-10.2); Carbon Dioxide 27 mmol/L (22-32); Chloride 106 mmol/L (98-107); Cholesterol 245 mg/dL (140-199); Estimated Glomerular Filt Rate > 60.0 mL/min (>60); Globulin 3.2 g/dL (1.7-4.1); Glucose 108 mg/dL (80-110); HDL Cholesterol 89 mg/dL (40-60); HEMOLYSIS < 15 (0-50); LDL Cholesterol Calculated 137 mg/dL (<100); Potassium 4.3 mmol/L (3.4-5.1); Sodium 139 mmol/L (137-145); Total Protein 7.7 g/dL (6.3-8.2); Triglycerides 93 mg/dL (35-150)
[2020-05-09 09:36] LABS: TSH w/ Reflex to FT4 1.85 uIU/mL (0.47-4.68)
== END ==
PROVIDERS: PCP Registered Nurse Diabetes Educator; Referring Provider Registered Nurse Diabetes Educator; Visit Provider Registered Nurse Diabetes Educator
DX: E78.5 Hyperlipidemia, unspecified (principal)
CPT/HCPCS: 36415; 80053; 80061; 84443; 85027

== ENCOUNTER → 2022-07-09 13:19 | Outpatient (CLI) | payer MEDICARE, SELFPAY ==
--- NOTE | 2022-07-09 | DI.MG.S_ITS ---
BILATERAL DIGITAL SCREENING MAMMOGRAM 3D/2D WITH CAD: 07/09/2022 CLINICAL: Routine screening. Comparison is made to exams dated: 04/09/2020 mammogram, 01/02/2019 mammogram, and 12/31/2016 mammogram - [facility]. There are scattered areas of fibroglandular density in both breasts (category b / 25%-50% glandular tissue). Current study was also evaluated with a Computer Aided Detection (CAD) system. There are benign calcifications in the left breast. No significant masses, calcifications, or other findings are seen in either breast. There has been no significant interval change. IMPRESSION: BENIGN There is no mammographic evidence of malignancy. A 1 year screening mammogram is recommended. Based on the Tyrer Cuzick model (a risk assessment model) the patient's lifetime risk is 3.4% and her 10 year risk is 0.0%. According to the ACR, ACS, and NCCN guidelines, an annual breast MRI exam along with mammogram is recommended if the patient's lifetime risk is 20% or greater. This exam was interpreted at Station ID: [id number]. NOTE: For mammograms, a report in lay terms will be sent to the patient. Approximately 15% of breast malignancies will not be visualized mammographically. In the management of a palpable breast mass, a negative mammogram must not discourage biopsy of a clinically suspicious lesion. Electronically Signed By: Felicia martin/kaela:07/09/2022 14:09:01 letter sent: Normal Exam ACR BI-RADS Category 2: Benign Finding(s) 3342F
== END ==
PROVIDERS: PCP Registered Nurse Diabetes Educator; Referring Provider Registered Nurse Diabetes Educator; Visit Provider Registered Nurse Diabetes Educator
DX: Z12.31 Encounter for screening mammogram for malignant neoplasm of breast (principal)
CPT/HCPCS: 77063; 77067

== ENCOUNTER 2023-12-19 07:59 | Day surgery (SDC) | payer MEDICARE, SELFPAY ==
--- NOTE | 2023-12-19 | PATH_ITS ---
[facility] Accession Number: [id number] No. of containers..03 Tissue . 01 Material submitted: . PART A: cecum - CECAL POLYP PART B: colon - ASCENDING POLYP PART C: colon - RECTAL POLYP . 01 Diagnosis: Part A: CECAL POLYP: Tubular adenoma. . Part B: ASCENDING POLYP: Tubular adenoma. . Part C: RECTAL POLYP: Hyperplastic polyp. [facility] 12/20/2023 1636 Local . 01 Electronically signed: . Kyle Messina MD, Pathologist NPI- [id number] . 01 Gross description: . Part A: CECAL POLYP: Received in formalin are 2 fragment(s) of galvan, soft tissue measuring 0.2 x 0.2 x 0.2 cm to 0.3 x 0.3 x 0.2 cm submitted entirely in 1 cassette(s) . Part B: ASCENDING POLYP: Received in formalin is 1 fragment(s) of galvan, soft tissue measuring 0.6 x 0.6 x 0.3 cm submitted entirely in 1 cassette(s) . Part C: RECTAL POLYP: Received in formalin is 1 fragment(s) of galvan, soft tissue measuring 0.6 x 0.5 x 0.4 cm submitted entirely in 1 cassette(s) /SAJAN 12/20/2023 1636 Local . 01 Pathologist provided ICD-10: D12.0, D12.2, K63.5 . 01 CPT . 503069, 544563, 085023 Specimen Comment: A courtesy copy of this report has been sent to [phone] Performed at: [address] [facility], [place], [place] [id number] MD Kyle Messina MD Phone: [phone]
[2023-12-19 08:21] VITALS: BP 132/82; PULSE 98; RESP 14; TEMP 37; O2SAT 97
--- NOTE | 2023-12-19 09:13 | P.HP_ITS ---
History of Present Illness History of Present Illness Date Patient Seen: 12/19/23 Time Patient Seen: 09:13 Chief complaint: SDC Narrative: Swathi is a 78-year-old woman who has had polyps removed during colonoscopies in the past. Her last colonoscopy was roughly [address] Hutchins. No known family history of colon cancer. [facility] Medical History Elevated BP without diagnosis of hypertension Upper back pain Social History Smoking Status: Former smoker Tobacco: How many years used: 10 second hand exposure: No alcohol intake: current substance use type: does not use Meds Home Medications and Allergies Home Medications Medication Instructions Recorded Confirmed Type [CALCIUM W/VIT D] PO QDAY ##0 01/18/12 06/03/23 History [MULTIVITAMIN] PO QDAY ##0 01/18/12 06/03/23 History varicella-zoster glycoE [id number] 50 mcg IM ONCE #1 ea 01/21/18 06/03/23 Rx adj(PF) 50 mcg/0.5 mL IM susp, kit (Shingrix (PF)) peg 3350-sod sulf,[id number]-lir-kxp 1,000 ml PO DIRECTED #2,000 mL 10/15/23 Rx 178.7-7.3-0.5-1.12-0.9 gram oral soln (Suflave) Allergies Allergy/AdvReac Type Severity Reaction Status Date / Time aspirin [ASPIRIN] AdvReac Intermediate (SENSITIVITY) Verified 12/19/23 08:20 UPSET STOMACH ibuprofen [IBUPROFEN] AdvReac Intermediate GI UPSET Verified 12/19/23 08:20 naproxen [From ALEVE] AdvReac Intermediate GI UPSET Verified 12/19/23 08:20 Exam Vital Signs (past 8 hours): - 12/19/23 08:21 Temperature 98.6 F Pulse Rate 98 H Respiratory Rate 14 Blood Pressure 132/82 Pulse Oximetry 97 Oxygen Delivery Method Room Air Oxygen Delivery Method Room Air Const General: healthy appearing Assessment & Plan Assessment and plan (1) Colon cancer screening: Status: Acute Plan Colonoscopy Time-Based Coding :: [TOTAL MINUTES] spent with patient and on the chart (including review of chart, obtaining history, exam, reviewing outside data, placing orders, documenting exam and treatment plan, and counseling patient) on [DATE].
[2023-12-19 09:50] VITALS: BP 105/63; PULSE 84; RESP 19; TEMP 36; O2SAT 95
--- NOTE | 2023-12-19 09:54 | PM.OP.COLON ---
Operative Date/Time/Diagnoses Date of procedure: 12/19/23 Time of procedure: 09:54 Pre-op diagnosis: Colon cancer screening Post-op diagnosis: same Procedure & Clinicians Study performed: Colonoscopy Same procedure as scheduled: Yes Surgeon: Elvis Jones Procedure Notes Procedure in detail: Surgeon: Elvis Jones MD Anesthesia: Gay Restrepo CRNA Procedure: The patient was brought to the endoscopy suite, placed in left lateral decubitus position. The patient was connected to monitoring devices. A time-out was performed. Sedation was administered. Once the patient was adequately sedated, a digital rectal exam was performed and was normal. The scope was then inserted and advanced to the cecum where the appendiceal orifice was identified and photographed. The scope was then slowly withdrawn over greater than 6 minutes. The mucosa was thoroughly inspected. There was a 2 mm cecal polyp near the appendiceal orifice removed with a cold forceps. There was a 5 mm ascending colon polyp removed with a cold snare. There was a 7 mm rectal polyp removed with a cold snare. The scope was retroflexed in the rectum. No other abnormalities were seen. The scope was straightened and removed. The patient was awakened and brought to recovery. Scope withdrawal time: 12 minutes Sedation time: 20 minutes EBL: 3 mL Findings: 2 mm cecal polyp, 5 mm ascending colon polyp, 7 mm rectal polyp Post-procedure Disposition: PACU
[2023-12-19 09:55] VITALS: BP 107/72; PULSE 80; RESP 17; O2SAT 95
[2023-12-19 10:00] VITALS: BP 123/79; PULSE 86; RESP 13; O2SAT 96
[2023-12-19 10:07] VITALS: BP 111/66; PULSE 85; RESP 15; O2SAT 97
[2023-12-19 10:22] VITALS: BP 121/77; PULSE 66; RESP 14; TEMP 36.1; O2SAT 98
== END 2023-12-19 10:23 | disposition home or self-care (01) ==
PROVIDERS: PCP Registered Nurse Diabetes Educator; Referring Provider Surgery; Visit Provider Surgery
PROC: 0DJD8ZZ Inspection of Lower Intestinal Tract, Via Natural or Artificial Opening Endoscopic (ICD-10-PCS; CPT 45378; principal; 2023-12-19 09:30)
DX: Z12.11 Encounter for screening for malignant neoplasm of colon (principal); Z86.0100 Personal history of colon polyps, unspecified; D12.0 Benign neoplasm of cecum; D12.2 Benign neoplasm of ascending colon; K62.1 Rectal polyp
CPT/HCPCS: 45385; 45380; J2704

== ENCOUNTER → 2024-02-05 16:25 | Outpatient (CLI) | payer MEDICARE, SELFPAY ==
--- NOTE | 2024-02-05 16:27 | DI.RAD.S_ITS ---
PROCEDURE: XR FOOT LT MIN 3V INDICATIONS: eval pain in L shoulder, knee, low back, foot TECHNIQUE: 3 views of the foot were acquired. COMPARISON: None. FINDINGS: Bones: No fractures or dislocations. No suspicious bony lesions. Moderate DIP joint osteoarthritis involving the 2nd and 3rd toes. Small calcaneal heel spur. Tiny Achilles insertion enthesophyte. Mild degeneration at the medial malleolus. Soft tissues: No tibiotalar joint effusion. Achilles tendon appears normal. IMPRESSION: Moderate degenerative findings most prominent at the 2nd and 3rd toe distal interphalangeal joints. Dictated by: Kyle Presley M.D. on 02/06/2024 at 11:29 Approved by: Kyle Presley M.D. on 02/06/2024 at 11:31
--- NOTE | 2024-02-05 16:27 | DI.RAD.S_ITS ---
PROCEDURE: XR SHOULDER LT MIN 2V INDICATIONS: eval pain in L shoulder, knee, low back, foot TECHNIQUE: 3 views of the shoulder were acquired. COMPARISON: None. FINDINGS: Bones: No fractures or dislocations. There is a bubbly calcification within the scapula near the glenoid likely representing a benign enchondroma. Visualized ribs appear intact. Moderate left glenohumeral joint osteoarthritis with inferior marginal osteophytes. The left acromioclavicular joint appears normal. Soft tissues: No suspicious soft tissue calcifications. IMPRESSION: Moderate left glenohumeral joint osteoarthritis. Dictated by: Kyle Presley M.D. on 02/06/2024 at 11:31 Approved by: Kyle Presley M.D. on 02/06/2024 at 11:39
--- NOTE | 2024-02-05 16:27 | DI.RAD.S_ITS ---
PROCEDURE: XR KNEE LT 1TO2V INDICATIONS: eval pain in L shoulder, knee, low back, foot TECHNIQUE: 2 views of the knee were acquired. COMPARISON: None. FINDINGS: Bones: No fractures or dislocations. No suspicious bony lesions. Moderate tricompartmental osteoarthritis with marginal osteophytes. Soft tissues: Likely small suprapatellar joint effusion, limited by rotation. No suspicious soft tissue calcifications. IMPRESSION: Moderate tricompartmental osteoarthritis and likely small suprapatellar joint effusion. Dictated by: Kyle Presley M.D. on 02/06/2024 at 11:39 Approved by: Kyle Presley M.D. on 02/06/2024 at 11:41
--- NOTE | 2024-02-05 16:27 | DI.RAD.S_ITS ---
PROCEDURE: XR LUMBAR SPINE 2-3V INDICATIONS: eval pain in L shoulder, knee, low back, foot TECHNIQUE: 3 views of the lumbar spine were acquired. COMPARISON: None. FINDINGS: Bones: 5 [id number] vertebrae are present. Moderate to severe multilevel degenerative disc disease with near complete disc height loss at T12-L1, L4-L5 and L5-S1. There is grade 1 anterolisthesis of L3 on L4. No vertebral body compression fractures. No suspicious bony lesions. Severe degeneration of the facets at L3-S1, with moderate to severe osseous neural foraminal stenosis at L4-L5 and L5-S1. Soft tissues: Overlying bowel gas pattern is normal. No suspicious soft tissue calcifications. Moderate aortoiliac calcification. IMPRESSION: 1. Moderate to severe osseous neural foraminal stenosis at L4-L5 and L5-S1. 2. Severe facet degeneration at L3-S1. 3. Grade 1 anterolisthesis of L3 on L4. Dictated by: Kyle Presley M.D. on 02/06/2024 at 11:19 Approved by: Kyle Presley M.D. on 02/06/2024 at 11:29
== END ==
PROVIDERS: PCP Registered Nurse Diabetes Educator; Referring Provider Registered Nurse Diabetes Educator; Visit Provider Registered Nurse Diabetes Educator
DX: M19.012 Primary osteoarthritis, left shoulder (principal); M17.12 Unilateral primary osteoarthritis, left knee; M19.072 Primary osteoarthritis, left ankle and foot; M47.816 Spondylosis without myelopathy or radiculopathy, lumbar region; M47.817 Spondylosis without myelopathy or radiculopathy, lumbosacral region; M48.07 Spinal stenosis, lumbosacral region; M48.061 Spinal stenosis, lumbar region without neurogenic claudication; M43.16 Spondylolisthesis, lumbar region; M25.562 Pain in left knee; M79.672 Pain in left foot; M25.512 Pain in left shoulder; G89.29 Other chronic pain; M54.59 Other low back pain
CPT/HCPCS: 72100; 73030; 73560; 73630

== ENCOUNTER → 2024-10-28 08:06 | Outpatient (CLI) | payer MEDICARE, SELFPAY ==
--- NOTE | 2024-10-28 08:08 | DI.CT.S_ITS ---
PROCEDURE: CT CHEST WO CON INDICATIONS: Dyspnea on exertion TECHNIQUE: Noncontrast 5 mm thick sections acquired from the pulmonary apices to the posterior costophrenic angles. 1 mm lung window, 5 mm thick coronal and sagittal and 7 mm axial MIP reformats were then acquired. For radiation dose reduction, the following was used: automated exposure control, adjustment of mA and/or kV according to patient size. COMPARISON: [facility], CR, XR CHEST 2V, 10/22/2024, 12:01. FINDINGS: Image quality: Diagnostic. Lower Neck: No enlarged lymph nodes. Thyroid: No thyroid nodules which require sonographic follow up, per consensus guidelines. Axillae: No enlarged lymph nodes. Chest Wall: Unremarkable. Bones: No aggressive appearing bony lesions. Lungs and Pleura: No pneumothorax or pleural effusions. There is peripheral interstitial reticular thickening throughout bilateral lung roche concerning for pulmonary fibrosis. No suspicious pulmonary nodules. No focal airspace consolidations. The airway is patent. Mild bronchiectasis in bilateral lower lobes are seen. Heart: Heart size is enlarged. No pericardial effusion. Thoracic Vessels: The aorta and pulmonary arteries demonstrate normal size. 3 vessel coronary artery atherosclerotic calcifications are seen. Mediastinum and Ary: No enlarged lymph nodes. Esophagus: No wall thickening. Small hiatal hernia. Upper Abdomen: Visualized upper abdomen solid organs and bowel loops appear normal. IMPRESSION: 1. Finding is suggestive of interstitial pulmonary fibrosis. Mild traction bronchiectasis in bilateral lower lung roche.No focal infiltrate, pleural effusion or pneumothorax. 2. Cardiomegaly, no pericardial effusion. No mediastinal or hilar lymphadenopathy. 3. No thoracic aortic aneurysm. Moderate to severe coronary artery atherosclerotic calcifications. Dictated by: Robert Joseph M.D. on 10/28/2024 at 9:34 Approved by: Robert Joseph M.D. on 10/28/2024 at 9:39
== END ==
PROVIDERS: PCP Registered Nurse Diabetes Educator; Referring Provider Registered Nurse Diabetes Educator; Visit Provider Physician Assistant
DX: I51.7 Cardiomegaly (principal); I25.10 Atherosclerotic heart disease of native coronary artery without angina pectoris; K44.9 Diaphragmatic hernia without obstruction or gangrene; R93.89 Abnormal findings on diagnostic imaging of other specified body structures
CPT/HCPCS: 71250

== ENCOUNTER → 2024-11-05 08:53 | Outpatient (CLI) | payer MEDICARE, SELFPAY ==
--- NOTE | 2024-11-05 08:56 | DI.ECHO.S_ITS ---
[place] [facility] : : [address] : : [id number] : : Phone: [phone] Echocardiogram Report + + :Name: JUNIOR PARIS Study Date: 11/05/2024 Height: 60 in : :[facility] ReadingLocation: Weight: 190 lb : : Gender: Female BSA: 1.8 m2 : :: 1945 Age: 79 yrs BP: 176/89 mmHg: :Reason For Study: PALPITATIONS, DYSPNEA ON EXERTION : :Ordering Physician: KOTA, : :MARKUS Walker Performed By: Cristian Davila : :Referring: MARKUS ESCUDERO : + + Interpretation Summary The ejection fraction is estimated to be 55-60%. There is trace mitral regurgitation. There is no pericardial effusion. Procedure: A two-dimensional transthoracic echocardiogram with color flow and Doppler was performed. The study quality was technically adequate. There is no prior echocardiogram noted for this patient. The patient was in atrial fibrillation with heart rates between 71-101 bpm during the exam. Left Ventricle: The left ventricle is normal in size. There is normal left ventricular wall thickness. There is no ventricular septal defect visualized. The ejection fraction is estimated to be 55-60%. There are no focal wall motion abnormalities. Diastolic function could not be accurately assessed due to atrial fibrillation. Right Ventricle: The right ventricle is not well visualized. Atria: The left atrial size is normal. Right atrial size is normal. There is no Doppler evidence for an interatrial shunt. Mitral Valve: There is mild mitral annular calcification. The mitral valve leaflets appear normal. There is no evidence of stenosis, fluttering, or prolapse. There is trace mitral regurgitation. Aortic Valve: The aortic valve is grossly normal. No aortic regurgitation is present. Tricuspid Valve: The tricuspid valve is not well visualized, but is grossly normal. No tricuspid regurgitation. Pulmonic Valve: The pulmonic valve leaflets are thin and pliable; valve motion is normal. There is no pulmonic valvular regurgitation. Great Vessels: The aortic root is normal size. The dimensions of the ascending aorta are normal. The pulmonary artery is normal size. The IVC is of normal diameter and collapses greater than 50% with a sniff. This suggests a low right atrial pressure of 3 mm Hg. Pericardium/ Pleura There is no pericardial effusion. There is no pleural effusion. MMode/2D Measurements & Calculations LVIDd: 4.4 cm LVOT diam: 1.9 cm LVIDs: 3.5 cm Ao root diam: 3.0 cm FS: 21.3 % asc Aorta Diam: 2.9 cm EPSS: 0.37 cm IVSd: 0.97 cm LVPWd: 1.0 cm LV moore. diameter/BSA (cm/m^2): 2.4 LV sys. diameter/BSA (cm/m^2): 1.9 LA A2 area: 15.2 cm2 RA long axis: 4.3 cm LA A4 area: 11.8 cm2 RA area: 9.3 cm2 LA length (vol): 4.5 cm RA vol: 17.1 ml LA vol: 33.9 ml RA : 9.3 ml/m2 LA vol index: 18.6 ml/m2 IVC diam: 1.2 cm TAPSE: 2.0 cm Doppler Measurements & Calculations Ao V2 max: 129.0 cm/sec LVOT Max Vinod: 90.6 cm/sec Ao V2 mean: 91.9 cm/sec LV V1 max P.3 mmHg Ao max P.7 mmHg LV V1 VTI: 20.1 cm Ao mean P.7 mmHg ANEL(I,D): 1.8 cm2 Ao V2 VTI: 30.1 cm ANEL(V,D): 1.9 cm2 sev ratio: 0.67 ANEL indexed to BSA (cm^2/m^2): 1.0 MV E max vinod: 74.3 cm/sec PA V2 max: 130.8 cm/sec MV A max vinod: 105.7 cm/sec PA V2 mean: 82.3 cm/sec MV E/A: 0.70 PA mean P.1 mmHg Med Peak E' Vinod: 8.6 cm/sec PA pr(Accel): 63.6 mmHg E/E' med: 8.6 Lat Peak E' Vinod: 6.6 cm/sec E/E' lat: 11.3 E/e' average: 10.0 MV dec time: 0.20 sec SV(LVOT): 54.9 ml Reading Physician:05:33 PM
== END ==
PROVIDERS: PCP Registered Nurse Diabetes Educator; Referring Provider Registered Nurse Diabetes Educator; Visit Provider Physician Assistant
DX: I34.81 Nonrheumatic mitral (valve) annulus calcification (principal); R06.09 Other forms of dyspnea; R00.2 Palpitations
CPT/HCPCS: 93306

== ENCOUNTER → 2024-11-09 08:57 | Outpatient (CLI) | payer MEDICARE, SELFPAY | PROVIDERS: PCP Registered Nurse Diabetes Educator; Referring Provider Registered Nurse Diabetes Educator; Visit Provider Physician Assistant | DX: G47.33 Obstructive sleep apnea (adult) (pediatric) (principal); J45.20 Mild intermittent asthma, uncomplicated; J84.10 Pulmonary fibrosis, unspecified; R00.2 Palpitations; R06.02 Shortness of breath; R42 Dizziness and giddiness | CPT/HCPCS: 93246; 94060; 94726; 94729 ==

== ENCOUNTER → 2024-11-09 10:32 | Outpatient (CLI) | payer MEDICARE, SELFPAY | LOC: CAR 10:32 | PROVIDERS: PCP Registered Nurse Diabetes Educator; Referring Provider Physician Assistant; Visit Provider Physician Assistant | DX: R00.2 Palpitations (principal); R06.02 Shortness of breath; R42 Dizziness and giddiness | CPT/HCPCS: 93246 ==

== ENCOUNTER → 2025-01-22 14:21 | Outpatient (CLI) | payer MEDICARE, SELFPAY ==
--- NOTE | 2025-01-22 14:23 | DI.MG.S_ITS ---
MM screening mammo BI: 01/22/2025. BI-RADS: 1 CLINICAL: 79-year old female for bilateral screening mammogram. Tyrer-Cuzick lifetime risk of 2.4%. No personal or first-degree family history of breast cancer. PRIOR EXAMS 07/09/2022, 04/21/2020, 04/09/2020, 01/02/2019. MAMMOGRAPHY TECHNIQUE: 2D and 3D (tomosynthesis) digital mammographic views obtained, with additional images as needed for full coverage. Current study was also evaluated with a Computer Aided Detection (CAD) system. DENSITY B. There are scattered areas of fibroglandular density. MAMMOGRAPHY FINDINGS Bilateral: No suspicious mass, asymmetry, microcalcification, or other abnormality seen. IMPRESSION: * No evidence of malignancy. RECOMMENDATIONS Bilateral * Annual screening mammography. OVERALL ASSESSMENT CATEGORY BI-RADS-1: Negative. The [employer] recommends annual screening mammography beginning at age 40 for women with average risk of breast cancer. ELECTRONICALLY SIGNED: Be Padilla M.D. on 01/22/2025 at 11:51:03 PM PT Interpreting Station ID: [id number]
== END ==
LOC: MAMMO 14:22
PROVIDERS: PCP Registered Nurse Diabetes Educator; Referring Provider Registered Nurse Diabetes Educator; Visit Provider Registered Nurse Diabetes Educator
DX: Z12.31 Encounter for screening mammogram for malignant neoplasm of breast (principal)
CPT/HCPCS: 77063; 77067